=== PATIENT | female | born 1930 | race African-American/Black ===

== ENCOUNTER 2018-01-03 01:23 | Emergency (ER) | payer OTHER, MEDICARE ==
--- NOTE | 2018-01-03 01:47 | PDOC ---
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 States that she has intermittent pain of her right foot that radiates up her leg but acutely worsened tonight. Her famiyl at bedside are more concerned about her increased urinary frequency that has become malodorous. Denies fevers, chills, nausea, vomiting, diarrhea, constipation, or other symptoms. Denies recent travel, immobility, leg swelling, SOB, or chest pain. She uses a walker at home. 01/03/18 01:53 Past History - Past Medical History Allergies/Adverse Reactions: Allergies Allergy/AdvReac Type Severity Reaction Status Date / Time No Known Allergies Allergy Verified 01/03/18 02:05 Home Medications: Ambulatory Orders Amlodipine Besylate [Norvasc -] 5 mg PO DAILY 09/08/13 Metoprolol/Hydrochlorothiazide [Metoprolol-Hctz 50-25 mg Tab] 1 each PO DAILY Triamterene/Hydrochlorothiazid [Triamterene-Hctz 37.5-25 mg Cp] 1 tab PO DAILY 09/08/13 Cephalexin Monohydrate [Keflex -] 500 mg PO BID 7 Days #14 capsule 01/03/18 Anemia: No Asthma: No Cancer: No Cardiac Disorders: No CVA: No COPD: No CHF: No Dementia: No Diabetes: No GI Disorders: Yes (STOMACH PROBLEM) Disorders: No HTN: No Hypercholesterolemia: No Liver Disease: No Seizures: No Thyroid Disease: No - Surgical History Abdominal Surgery: Yes Appendectomy: No Cardiac Surgery: No Cholecystectomy: No Lung Surgery: No Neurologic Surgery: No Orthopedic Surgery: No - Suicide/Smoking/Psychosocial Hx Smoking History: Never smoked Hx Alcohol Use: No Drug/Substance Use Hx: No Substance Use Type: None Hx Substance Use Treatment: No Review of Systems - Review of Systems Constitutional: No: Chills, Diaphoresis, Fever, Loss of Appetite HEENTM: No: Eye Pain, Blurred Vision Respiratory: No: Cough, Orthopnea, Shortness of Breath, Wheezing Cardiac (ROS): No: Chest Pain, Edema, Irregular Heart Rate ABD/GI: No: Constipated, Diarrhea, Nausea, Vomiting : No: Burning, Dysuria, Discharge Musculoskeletal: Yes: Muscle Pain. No: Back Pain, Joint Pain, Muscle Weakness Integumentary: No: Bruising, Lesions, Lumps, Pallor Neurological: Yes: Paresthesia, Tingling. No: Numbness, Weakness Psychiatric: No: Anxiety, Depression *Physical Exam - Physical Exam General Appearance: Yes: Nourished, Appropriately Dressed. No: Apparent Distress HEENT: positive: EOMI, CARLI, Normal ENT Inspection, Normal Voice Neck: positive: Trachea midline, Normal Thyroid, Supple. negative: Tender, Rigid Respiratory/Chest: positive: Lungs Clear, Normal Breath Sounds. negative: Chest Tender, Respiratory Distress, Accessory Muscle Use Cardiovascular: positive: Regular Rhythm, Regular Rate Vascular Pulses: Carotid (R): 2+, Carotid (L): 2+, Dorsalis-Pedis (R): 2+, Doralis-Pedis (L): 2+ Gastrointestinal/Abdominal: positive: Normal Bowel Sounds, Flat, Soft. negative : Tender Musculoskeletal: positive: Normal Inspection Extremity: positive: Normal Capillary Refill, Normal Inspection, Normal Range of Motion. negative: Tender Integumentary: positive: Normal Color, Dry, Warm, Cold (both LEs cold to touch) Neurologic: positive: Fully Oriented, Alert, Normal Mood/Affect, Normal Response , Respond to painful stimul. negative: Motor Strength 5/5 (4/5 upper and lower extremities), Sensory Deficit ED Treatment Course - LABORATORY CBC & Chemistry Diagram: 01/03/18 03:16 01/03/18 03:16 Medical Decision Making - Medical Decision Making 87 year old female with PMH of GIST, HTN , and Atrial fibrillation urinary frequency and non specific right toe paresthesias that are acute on chronic. No swelling in lower extremities with low risk for DVT. Pain improved drastically with one dose of Tylenol 650 MG. L spine negative for any met to spine. CBC/ CMP WNL but UA demonstrating infection. Given Rocephin one dose here and sent home with Keflex 500 BID. 01/03/18 05:04 *DC/Admit/Observation/Transfer Diagnosis at time of Disposition: UTI (urinary tract infection) Qualifiers: Urinary tract infection type: site unspecified Hematuria presence: with hematuria Qualified Code(s): N39.0 - Urinary tract infection, site not specified ; R31.9 - Hematuria, unspecified - Discharge Dispostion Disposition: HOME Condition at time of disposition: Improved - Prescriptions Prescriptions: Cephalexin Monohydrate [Keflex -] 500 mg PO BID 7 Days #14 capsule - Referrals - Patient Instructions Printed Discharge Instructions: DI for Urinary Tract Infection (UTI) Additional Instructions: You have an infection in your urine. Please take your antibiotics twice a day for the next 7 days. Please follow up with your PCP within one week. Please return to the ED if you have any new or worsening symptoms. - Post Discharge Activity
[2018-01-03] MEDS ORDERED: ACETAMINOPHEN 325 MG TABLET (FP) PO ONE (01:58)
[2018-01-03] MEDS ORDERED: ACETAMINOPHEN 325 MG TABLET (FP) ONE (02:05)
[2018-01-03 02:07] VITALS: TEMP 99.3; BMI 33.0
--- NOTE | 2018-01-03 02:58 | PDOC ---
Attending Attestation - HPI HPI: 01/03/18 03:50 The patient is a 87 year old female with past medical history of GIST and HTN presents to the emergency department with urinary problems. The patient reports shes been experiencing urinary frequency for the past couple of day without relief. The patient reports a history of chronic intermittent right lower extremity tingling. The patient reports associated symptoms of right foot pain that radiates up to the leg. The patient denies taking any medication for the pain. Denies dysuria or hematuria. Denies diarrhea or constipation. Denies nausea or vomiting. Denies numbness or loss of sensations. Allergies: NKDA Social history: None reported Surgical history: Abdominal surgical. PCP: None reported - Medical Decision Making 01/03/18 03:50 Documentation prepared by Delisa Melendez, acting as medical technologist generalist for Karime Cruz MD. <Delisa Melendez - Last Filed: 01/03/18 03:50> - Resident Resident Name: Catia Mathis - ED Attending Attestation I have performed the following: I have examined & evaluated the patient, The case was reviewed & discussed with the resident, I agree w/resident's findings & plan - Physicial Exam PE: 01/03/18 03:34 Agree with resident exam - Medical Decision Making 01/03/18 03:35 Pt has labs pending 01/03/18 04:59 Labs are normal. Pt has a UTI. SHe will be discharged home with keflex. Low back pain and lef paresthesias was evaluated with a L spine CT scan. Scan is normal: Patient Name: GARLAND JOSHUA THIS IS A PRELIMINARY REPORT FROM [facility] MACHINE OPERATOR DATE OF SERVICE: 2018-01-03 04:33:32 IMAGES: 435 EXAM: LUMBAR SPINE CT W/O CONTRAST HISTORY: Rule out metastases COMPARISON: None. FINDINGS: No fracture. There is a mild degenerative anterolisthesis of L5 on S1. There are no suspicious bone lesions. Multilevel severe degenerative changes are noted with diffuse moderate neuroforaminal and mild central canal narrowing. IMPRESSION: Degenerative changes without fracture or suspicious bone lesions <Karime Cruz - Last Filed: 01/03/18 05:00>
[2018-01-03 03:36] LABS: BASO % 0.4 % (0-2.0); EOS % 0.4 % (0-4.5); HEMATOCRIT 43.3 % (32.4-45.2); LYMPH % 12.9 % (8-40); MCH 28.1 pg (25.7-33.7); MCHC 32.3 g/dl (32.0-36.0); MEAN CELL VOLUME 86.8 fl (80-96); MONO % 6.3 % (3.8-10.2); PLATELET COUNT 198 K/MM3 (134-434); RBC 4.99 M/mm3 (3.60-5.2); RDW 15.1 % (11.6-15.6); WHITE BLOOD COUNT 8.2 K/mm3 (4.0-10.0)
[2018-01-03 03:56] LABS: URINE APPEARANCE CLOUDY; URINE BILIRUBIN NEGATIVE (<2.0 mg/dL); URINE COLOR AMBER; URINE GLUCOSE (UA) NEGATIVE (NEGATIVE); URINE KETONE NEGATIVE (NEGATIVE); URINE NITRITE NEGATIVE (NEGATIVE); URINE UROBILINOGEN 4.0 E.U/dl mg/dL (0.2-1.0)
[2018-01-03 03:56] LABS: ALBUMIN 2.9 g/dl (3.4-5.0); ALK PHOS 99 U/L (45-117); ANION GAP 10 (8-16); BILIRUBIN,TOTAL 0.8 mg/dL (0.2-1.0); BLOOD UREA NITROGEN 16 mg/dL (7-18); CALCIUM 9.2 mg/dL (8.5-10.1); CHLORIDE 108 mmol/L (98-107); CO2 23 mmol/L (21-32); CREATININE 1.1 mg/dL (0.55-1.02); GLUCOSE,RANDOM 123 mg/dL (74-106); POTASSIUM 4.2 mmol/L (3.5-5.1); SGOT/AST 47 U/L (15-37); SGPT/ALT 46 U/L (12-78); SODIUM 141 mmol/L (136-145); TOT PROT 6.6 g/dl (6.4-8.2)
[2018-01-03 04:05] LABS: URINE LEUK ESTERASE 3+ (NEGATIVE); URINE PROTEIN 3+ (NEGATIVE)
[2018-01-03 04:07] LABS: EPI CELLS MANY /HPF (FEW); URINE BACTERIA MANY /hpf (NONE SEEN); URINE MUCUS RARE
[2018-01-03] MEDS ORDERED: SODIUM CHLORIDE 0.9% 500 ML INFUS.BAG IV ONE (05:00)
[2018-01-03] MEDS ORDERED: CEFTRIAXONE 1 GM in DEXTROSE 5%-WATER - 50 ML IVPB ONE (05:00)
[2018-01-03] MEDS ORDERED: CEFTRIAXONE 1 GM/50 ML BAG ONE (05:17)
[2018-01-03 05:50] VITALS: BP 118/78; PULSE 79
--- NOTE | 2018-01-03 11:21 | EKG ---
Test Reason : Blood Pressure : / mmHG Vent. Rate : 061 BPM Atrial Rate : 357 BPM P-R Int : 000 ms QRS Dur : 088 ms QT Int : 456 ms P-R-T Axes : 000 -34 167 degrees QTc Int : 459 ms ATRIAL FIBRILLATION LEFT AXIS DEVIATION ANTEROSEPTAL INFARCT (CITED ON OR BEFORE 15-OCT-2010) ABNORMAL ECG WHEN COMPARED WITH ECG OF 16-OCT-2010 12:58, ATRIAL FIBRILLATION HAS REPLACED SINUS RHYTHM Confirmed by JEREMY GRIFFIN MD ([id number]) on 01/03/2018 11:20:44 AM Referred By: Confirmed By:JEREMY GRIFFIN MD
== END 2018-01-03 05:30 | disposition home or self-care (01) ==
LOC: JER 01:23
DX: N39.0 Urinary tract infection, site not specified (principal); R31.9 Hematuria, unspecified; I10 Essential (primary) hypertension; I48.91 Unspecified atrial fibrillation; C49.A0 Gastrointestinal stromal tumor, unspecified site
CPT/HCPCS: 36415; 72131-TC; 80053; 81003; 81015; 85025; 87086; 87186; 93005; 93010; 96365; 99281-25

== ENCOUNTER 2018-01-08 11:40 | Inpatient (IN) | payer MEDICARE, OTHER ==
--- NOTE | 2018-01-08 12:00 | PDOC ---
History of Present Illness - History of Present Illness Initial Comments: 01/08/18 13:12 The patient is a 87 year old female with past medical history of GIST, HTN, HLD , arrhythmia, and gout who was sent by her PCP to be admitted for right cool leg. Patient does not endorse any current pain in the affected leg. She was seen in the ER 5 days ago for a UTI and hematuria. PCP: Blaine Thomas Vascular surgery: Wilfredo Riggins Family Hx: Mother ( at 80 with HTN and aneurysm), father ( of unknown reasons), sisters (one and one alive, both with ovarian cancer. Brothers ( one alive, one , both with melanoma.) Surgical Hx: LUCY-BSO, GIST <Vandana Bolton - Last Filed: 01/08/18 16:48> <Olga Macias - Last Filed: 01/08/18 16:57> - General Chief Complaint: Pain Stated Complaint: PCP SENT Time Seen by Provider: 01/08/18 11:58 Past History <Vandana Bolton - Last Filed: 01/08/18 16:48> - Past Medical History Anemia: No Asthma: No Cancer: No Cardiac Disorders: No CVA: No COPD: No CHF: No Dementia: No Diabetes: No GI Disorders: Yes (STOMACH PROBLEM) Disorders: No HTN: Yes Hypercholesterolemia: No Liver Disease: No Seizures: No Thyroid Disease: No - Surgical History Abdominal Surgery: Yes Appendectomy: No Cardiac Surgery: No Cholecystectomy: No Lung Surgery: No Neurologic Surgery: No Orthopedic Surgery: No - Suicide/Smoking/Psychosocial Hx Smoking History: Never smoked Have you smoked in the past 12 months: No Hx Alcohol Use: No Drug/Substance Use Hx: No Substance Use Type: None Hx Substance Use Treatment: No <Olga Macias - Last Filed: 01/08/18 16:57> - Past Medical History Allergies/Adverse Reactions: Allergies Allergy/AdvReac Type Severity Reaction Status Date / Time No Known Allergies Allergy Verified 01/08/18 11:46 Home Medications: Ambulatory Orders Amlodipine Besylate 5 mg PO DAILY 01/03/18 Metoprolol/Hydrochlorothiazide [Metoprolol-Hctz 100-25 mg Tab] 1 each PO DAILY 01/03/18 Review of Systems - Review of Systems Comments:: GENERAL/CONSTITUTIONAL: No fever or chills. No weakness. HEAD, EYES, EARS, NOSE AND THROAT: No change in vision. No ear pain or discharge. No sore throat. GASTROINTESTINAL: No nausea, vomiting, diarrhea or constipation. GENITOURINARY: No dysuria, frequency, or change in urination. CARDIOVASCULAR: No chest pain or shortness of breath. RESPIRATORY: No cough, wheezing, or hemoptysis. MUSCULOSKELETAL: No joint or muscle swelling or pain. No neck or back pain. SKIN: +cool right foot. No rash NEUROLOGIC: No headache, vertigo, loss of consciousness, or change in strength/ sensation. ENDOCRINE: No increased thirst. No abnormal weight change. HEMATOLOGIC/LYMPHATIC: +anemic, no easy bleeding, or history of blood clots. ALLERGIC/IMMUNOLOGIC: No hives or skin allergy. <Vandana Bolton - Last Filed: 01/08/18 16:48> *Physical Exam - Vital Signs Last Vital Signs Temp Pulse Resp BP Pulse Ox 98 F 71 18 155/105 99 01/08/18 11:42 01/08/18 11:42 01/08/18 11:42 01/08/18 11:42 01/08/18 11:42 - Physical Exam Comments: Constitutional: Awake, alert, oriented. No acute distress. Head: Normocephalic. Atraumatic Eyes: PERRL. EOMI. Conjunctivae are not pale. ENT: Mucous membranes are moist and intact. Posterior pharynx without exudates or erythema. Uvula midline. Neck: Supple. Full ROM. No lymphadenopathy. Cardiovascular: Regular rate. Regular rhythm. S1, S2 regular. Distal pulses are 2+ and symmetric. Pulmonary/Chest: No evidence of respiratory distress. Clear to auscultation bilaterally No wheezing, rales or rhonchi. Abdominal: Soft and non-distended. There is no tenderness. No rebound, guarding or rigidity. No organomegaly. No palpable masses. Good bowel sounds. Back: No CVA tenderness. Musculoskeletal: Cool right foot (mid-tibia down). Delayed cap refill. Weak posterior pulses. Popliteal intact. No edema. No cyanosis. No clubbing. Full range of motion in all extremities. No calf tenderness. Skin: Cool right foot. No petechiae. No purpura. Neurological: Alert and oriented to person, place, and time. Cranial nerves II -XII are grossly intact. Normal speech. Strength is grossly symmetric. No sensory deficits. Psychiatric: Good eye contact. Normal interaction, affect and behavior. <Vandana Bolton - Last Filed: 01/08/18 16:48> - Vital Signs Last Vital Signs Temp Pulse Resp BP Pulse Ox 98 F 71 18 155/105 99 01/08/18 11:42 01/08/18 11:42 01/08/18 11:42 01/08/18 11:42 01/08/18 11:42 <Olga Macias - Last Filed: 01/08/18 16:57> Heart Score/ECG Review - ECG Intrepretation Comment:: 01/08/18 16:53 afib at 63, L axis, poor r wave progression, st depression lateral leads, abnl ekg <Olga Macias - Last Filed: 01/08/18 16:57> ED Treatment Course - LABORATORY CBC & Chemistry Diagram: 01/08/18 12:50 01/08/18 12:50 - ADDITIONAL ORDERS Additional order review: 01/08/18 12:50 RBC 4.97 MCV 86.3 MCHC 32.4 RDW 15.1 MPV 8.9 Neutrophils % 78.3 Lymphocytes % 14.5 Monocytes % 6.7 Eosinophils % 0.1 Basophils % 0.4 <Vandana Bolton - Last Filed: 01/08/18 16:48> - LABORATORY CBC & Chemistry Diagram: 01/08/18 12:50 01/08/18 12:50 <Olga Macias - Last Filed: 01/08/18 16:57> Medical Decision Making - Critical Care Time Total Critical Care Time (minutes): 30 Critical Care Statement: The care of this patient involved high complexity decision making to prevent further life threatening deterioration of the patient 's condition and/or to evaluate & treat vital organ system(s) failure or risk of failure. - Medical Decision Making 01/08/18 12:54 a/p: 87yo female with cool R leg x 2 days -sensation intact -motor strength intact -Dr. Valladares will admit -call placed to Dr. Riggins - will see patient in consult -will send labs -arterial and venous doppler -will need admission 01/08/18 13:41 case discussed with radiology - no flow proximally in R leg, but has flow in popliteal, minimal flow distal poss collateral flow but lots of PVD repeat call placed to Dr. Riggins to update him 01/08/18 14:43 rediscussed the case with Dr. Riggins given decreased flow will start heparin will obtain cta abd/pelvis with LE runoff will admit 01/08/18 16:53 ct shows clot in AMBULANCE ATTENDANT and SFA on R heparin running another call placed to Dr. Riggins <Olga Macias - Last Filed: 01/08/18 16:57> *DC/Admit/Observation/Transfer <Vandana Bolton - Last Filed: 01/08/18 16:48> - Discharge Dispostion Decision to Admit order: Yes - Attestations Physician Attestion: 01/08/18 13:42 I, Dr. Olga Macias, DO, attest that this document has been prepared under my direction and personally reviewed by me in its entirety. I further attest, that it accurately reflects all work, treatment, procedures and medical decision -making performed by me. <Olga Macias - Last Filed: 01/08/18 16:57> Diagnosis at time of Disposition: Peripheral vascular disease - Discharge Dispostion Condition at time of disposition: Guarded
[2018-01-08 13:09] LABS: BASO % 0.4 % (0-2.0); EOS % 0.1 % (0-4.5); HEMATOCRIT 42.8 % (32.4-45.2); HEMOGLOBIN 13.9 GM/dL (10.7-15.3); LYMPH % 14.5 % (8-40); MCH 27.9 pg (25.7-33.7); MCHC 32.4 g/dl (32.0-36.0); MEAN CELL VOLUME 86.3 fl (80-96); MEAN PLT VOLUME 8.9 fl (7.5-11.1); MONO % 6.7 % (3.8-10.2); NEUT % 78.3 % (42.8-82.8); PLATELET COUNT 211 K/MM3 (134-434); RBC 4.97 M/mm3 (3.60-5.2); RDW 15.1 % (11.6-15.6)
[2018-01-08 13:22] LABS: CHLORIDE 107 mmol/L (98-107); SODIUM 142 mmol/L (136-145)
[2018-01-08 13:26] LABS: ALBUMIN 3.1 g/dl (3.4-5.0); ANION GAP 6 (8-16); BLOOD UREA NITROGEN 10 mg/dL (7-18); CO2 29 mmol/L (21-32); GLUCOSE,RANDOM 132 mg/dL (74-106); SGPT/ALT 47 U/L (12-78)
[2018-01-08 13:28] LABS: ALK PHOS 104 U/L (45-117); BILIRUBIN,TOTAL 0.6 mg/dL (0.2-1.0)
[2018-01-08 13:33] LABS: MAGNESIUM 2.1 mg/dL (1.8-2.4); POTASSIUM 3.9 mmol/L (3.5-5.1); SGOT/AST 35 U/L (15-37)
[2018-01-08] MEDS ORDERED: SODIUM CHLORIDE 0.9% 1000 ML INFUS.BAG IV ONE (13:41)
[2018-01-08 14:22] LABS: URINE APPEARANCE CLEAR; URINE BILIRUBIN NEGATIVE (<2.0 mg/dL); URINE COLOR YELLOW; URINE GLUCOSE (UA) 1+ (NEGATIVE); URINE KETONE NEGATIVE (NEGATIVE); URINE LEUK ESTERASE NEGATIVE (NEGATIVE); URINE NITRITE NEGATIVE (NEGATIVE)
[2018-01-08 14:23] LABS: URINE PROTEIN 3+ (NEGATIVE)
[2018-01-08 14:24] LABS: EPI CELLS RARE /HPF (FEW); URINE MUCUS RARE
[2018-01-08] MEDS ORDERED: HEPARIN NA (PORCINE) 5,000 UNITS/ML 1ML VIAL IVPUSH PRN ×2 (14:28)
[2018-01-08 14:31] LABS: INR 1.17 (0.82-1.09); PROTHROMBIN TIME (PATIENT) 13.2 SEC (9.7-13.0)
[2018-01-08 14:34] LABS: ACTIVATED PTT 25.3 SECONDS (26.9-34.4)
[2018-01-08] MEDS ORDERED: HEPARIN INFUSION - 25,000 UNITS/500 ML INFUS.BAG IVPB ONE (15:28)
[2018-01-08] MEDS ORDERED: HEPARIN NA (PORCINE) 5,000 UNITS/ML 1ML VIAL ONE (15:28)
[2018-01-08] MEDS: HEPARIN - 25,000 UNIT in SODIUM CHLORIDE 495 ML IV SCH (16:31)
--- NOTE | 2018-01-08 19:53 | PN ---
Progress Note (short form) - Note Progress Note: Vascular Surgery 87 year old female with 5 day history as per daughter of pain in her right leg. Today she could not walk on the leg and went to PMD. PMD sent Pt to ER. CTA in Er done shows right iliac artery, right associate technician, right sfa occlusion. Probably embolus. Pt does have history of Afib. PE Head - NC/At Lung - CTA Heart - RRR abd - soft,nt,nt ext - right lower ext cool, no palpable pulses. Left lower ext pink -- palpable PT pulse. Motor and sensory intact in RLE A/P Right lower ext ischemia. Pt on heparin drip Will stop at 6am. NPO past midnight. Spoke to family bedside. Wilfredo Riggins DO
[2018-01-09] MEDS: HEPARIN - 25,000 UNIT in SODIUM CHLORIDE 495 ML IV SCH (00:45)
[2018-01-09 01:00] VITALS: BMI 25.2
[2018-01-09] MEDS ORDERED: PROPOFOL 20 ML ONE (09:42)
[2018-01-09] MEDS ORDERED: MIDAZOLAM HCL 2 MG/2 ML SINGLE DOSE VIAL ONE (09:43)
[2018-01-09] MEDS ORDERED: SUCCINYLCHOLINE CHLORIDE 200 MG/10 ML VIAL ONE (09:43)
[2018-01-09] MEDS ORDERED: LIDOCAINE HCL/PF 2% SDV 5ML VIAL ONE (09:45)
[2018-01-09] MEDS ORDERED: LIDOCAINE HCL 1%, 10 MG/ML (20ML VIAL) ONE (09:47)
[2018-01-09] MEDS ORDERED: HEPARIN NA (PORCINE) 5,000 UNITS/ML 1ML VIAL ONE ×2 (09:47→11:08)
[2018-01-09] MEDS ORDERED: TIMOLOL 0.5% OPHTHALMIC SOL 5 ML BOTTLE OD SCH (10:00)
[2018-01-09] MEDS ORDERED: BRIMONIDINE TARTRATE 0.2% OPHTHALMIC 5 ML BOTTLE OD SCH (10:00)
[2018-01-09] MEDS ORDERED: amLODIPine BESYLATE 5 MG TABLET (FP) PO SCH (10:00)
[2018-01-09] MEDS ORDERED: IMATINIB MESYLATE 100 MG TABLET PO SCH (10:00)
[2018-01-09] MEDS ORDERED: DORZOLAMIDE 2% HCL OPHTHALMIC SOLUTION 10 ML BOTTLE OD SCH (10:00)
[2018-01-09] MEDS ORDERED: ceFAZolin SODIUM 1 GM VIAL IVPB ONE (10:50)
[2018-01-09] MEDS ORDERED: ceFAZolin SODIUM 1 GM VIAL ONE (10:55)
[2018-01-09] MEDS ORDERED: DEXAMETHASONE SOD PHOSPHATE 4 MG/1 ML VIAL ONE (11:09)
--- NOTE | 2018-01-09 11:50 | EKG ---
Test Reason : Blood Pressure : / mmHG Vent. Rate : 063 BPM Atrial Rate : 054 BPM P-R Int : 000 ms QRS Dur : 094 ms QT Int : 484 ms P-R-T Axes : 000 -43 127 degrees QTc Int : 495 ms POOR DATA QUALITY, INTERPRETATION MAY BE ADVERSELY AFFECTED ATRIAL FIBRILLATION LEFT AXIS DEVIATION ANTEROSEPTAL INFARCT (CITED ON OR BEFORE 15-OCT-2010) ABNORMAL ECG WHEN COMPARED WITH ECG OF 03-JAN-2018 01:34, NO SIGNIFICANT CHANGE WAS FOUND Confirmed by MD Carolyn, Harsha ([id number]) on 01/09/2018 11:50:25 AM Referred By: Confirmed By:Harsha Leon MD
--- NOTE | 2018-01-09 12:26 | OP ---
Operative Note - Note: Operative Date: 01/09/18 Pre-Operative Diagnosis: RLE ischemia Operation: Open thrombectomy right iliac, TECHNICAL ACCOUNT EXECUTIVE, DFA, SFA, Popliteal artery, with right lower ext angiogram. Findings: embolus in ilac , TECHNICAL ACCOUNT EXECUTIVE, DFA, SFA, Popliteal artery Post-Operative Diagnosis: Same as Pre-op Surgeon: Wilfredo Riggins Anesthesia: General Estimated Blood Loss (mls): 100 Fluid Volume Replaced (mls): 1,100 Operative Report Dictated: Yes
[2018-01-09] MEDS ORDERED: LACTATED RINGERS SOLUTION 1,000 ML IV SCH ×2 (12:30→12:44)
[2018-01-09] MEDS: HEPARIN INFUSION - 25,000 UNITS/500 ML INFUS.BAG IVPB SCH (12:30)
[2018-01-09] MEDS ORDERED: HEPARIN NA (PORCINE) 5,000 UNITS/ML 1ML VIAL IVPUSH PRN ×3 (12:30→12:31)
--- NOTE | 2018-01-09 13:43 | OP ---
DATE OF OPERATION: 01/09/2018 PREOPERATIVE DIAGNOSIS: Right lower extremity ischemia. POSTOPERATIVE DIAGNOSIS: Right lower extremity ischemia. PROCEDURE: Open thrombectomy of right iliac artery, right common femoral artery, right deep profunda artery, right superficial femoral artery, and right popliteal artery with right lower extremity angiogram. SURGEON: Wilfredo Rodríguez DO ANESTHESIA: General. BLOOD LOSS: 100 mL. The patient is an 87-year-old female that comes in with right lower extremity ischemia that started about 5 days ago. As per the daughter, the right leg has been getting cooler and cooler and more painful and, yesterday, she could not walk on the leg at all and she went to her PMD, who sent her to the emergency room. Upon getting to the emergency room, they did an arterial duplex that showed no flow in the right lower extremity and they did a CTA, which then confirmed that she has a right iliac artery thrombus, common femoral artery was closed, and the SFA closed. At this point, the patient was seen, IV heparin was started, consent was obtained. The patient was then brought to the operating room and consent was obtained from the daughter, who understands all risks, benefits, and alternatives. The patient was then brought to the operating room and laid down on the operating table in a supine manner. General anesthesia was administered to the patient. The area of the right and left groins were then prepped and draped in a sterile surgical manner. We then, under ultrasound guidance, visualized the right common femoral artery and the bifurcation and that was marked on the skin and then an incision was drawn out vertically. We then went ahead and a made a 7-cm incision using a 15 blade. Bovie electrocautery used to control hemostasis and then we were able to get down through all the subcutaneous tissues using Bovie electrocautery. We then got down to the femoral sheath and the femoral sheath was then dissected. We then individually dissected out the common femoral artery, the profunda, and SFA and Vesseloop were placed around them. Then, 5000 units of IV heparin were administered to the patient. After 3 minutes, we got proximal, distal control; proximally on the common femoral artery and distally on the SFA and the profunda using our Vesseloop. Using a 15 blade, we made a transverse incision on the common femoral artery. We then used a No. 4 Annabel and, upon putting the Annabel in, you could see that there was already clot in the artery. We took this Annabel down to the popliteal artery and brought it up and 3 passes were done and thrombus and embolus were removed and sent to pathology. We then went ahead and placed a No. 4 Annabel up into the iliac artery and we were able to get the thrombus out of the iliac artery and the thrombus was removed and the inflow was restored. At this point, there was good inflow, there was good backbleeding coming from the SFA. We then placed our balloon into the deep profunda artery and performed an embolectomy there and the clot was removed from the origin of the deep profunda artery. At this point, we went ahead and paced a No. 4-Turkmen sheath in and we shot an angiogram of the right lower extremity, showing that the common femoral artery, the profunda, the SFA are all patent. Popliteal artery is patent as well and there is trickle-down flow due to tibial disease going into the distal calf. At this point, we went ahead and decided to close the artery. Using 6-0 Prolene double-arm, we went ahead and closed the artery in a running fashion. Once the artery was closed, we opened the profunda and the SFA and opened the inflow. We then went ahead and placed Surgicel. We then took a butterfly needle and placed it in the proximal SFA and shot an angiogram of the right lower extremity with the inflow open and there was good brisk flow down into the popliteal artery, along with visualizing the TP trunk and the tibial arteries. At this point, the flow into the foot was via collaterals and, at this point, no more intervention is needed. We will anticoagulate the patient and the foot should become warmer. There is no surgical intervention, such as angioplasty, needed. There is no bypassable disease at this point. At this point, we went ahead and, using a 6-0 Prolene, we were able to place a stitch where the butterfly needle was. We then irrigated the wound copiously and 3-0 Vicryl was used in the subcutaneous tissue, which was approximated in an interrupted manner, and the skin was closed with skin ravi. The areas were then dried and 4x4s, Tegaderm were placed. The patient tolerated the procedure with no complications. Patient transferred to the PACU in stable condition and will then be transferred to the intensive care unit. The patient was given a 3000 unit IV heparin bolus, along with 1000 units/hr. The patient will be transferred to the unit. The patient has a good Dopplerable popliteal pulse. WILFREDO RODRÍGUEZ DO [id number]
--- NOTE | 2018-01-09 15:24 | HP ---
DATE OF ADMISSION: 01/08/2018 The patient is an 87-year-old female, known to me for many years, came to my office yesterday with complaints of cold right leg. In the office, it was thought that patient has acute thrombosis, so patient was sent to the emergency room for further evaluation. PAST MEDICAL HISTORY: She had a stomach tumor removed about 7 years ago. Since then, she is on Gleevec, being followed by Dr. Diamond. This morning, the right iliac artery embolism was removed by Dr. Riggins under anesthesia. Patient tolerated the procedure well. Patient's circulation has improved. She is resting in the ICU, bed number 2. She is also known to have hypertension. She is on amlodipine. PHYSICAL EXAMINATION: General: Patient is awake, alert and talking. Vital Signs: Blood pressure 140/75, respiration 20, temperature 98. HEENT: Unremarkable. Neck: Supple, no JVD. Lungs: Clear. Heart: S1, S2 normal. No S3, S4. Abdomen: Soft. Legs: Peripheral pulses felt on both femurs. Popliteal is not felt on the right side. The leg is warmer than yesterday. There are Doppler signals on the popliteal artery and dorsalis pedis or posterior tibial is not having any Doppler signals at present. LABORATORY REPORTS: WBC 9, hemoglobin 13.9, platelets 211. Chemistry: Sodium 142, potassium 3.9, chloride 107, BUN 10, creatinine 1, blood sugar 132, lactic acid was 2.7, albumin 3.1. Chest x-ray: No lung pathology, large heart. DIAGNOSIS: Acute thromboembolism on the right lower extremity, hypertension, and gastric tumor resection. Continue heparin and other medications. Will follow with Dr. Riggins. Henna [id number]
--- NOTE | 2018-01-09 20:20 | CONSULT ---
Consult Consult Specialty:: Pulm Critical Care Referred by:: Dr. Riggins Reason for Consultation:: s/p thrombectomy - History of Present Illness Chief Complaint: Rt GROCERY CLERK CHECKING and SFA clot History of Present Illness: This is an 87 yo female w/ pmhx of GIST, HTN, HLD, arrhythmia, and gout who presented to her PCP on 01/08 with a 5 day of pain in her right leg. Daughter described that her mother's right leg was getting cooler and more painful to the point where she was unable to walk on the leg at all. Pt's PCP sent her to [facility] ED and she was seen by vascular service. CTA in ED showed embolus in ilac , GROCERY CLERK CHECKING, DFA, SFA, Popliteal artery. On exam, her right lower ext ischemia, cool, no palpable pulses, Left lower ext pink - palpable PT pulse, and motor and sensory intact in RLE. She was placed on a heparin gtt with plan to do thrombectomy the following day w/ vascular surgery Dr. Wilfredo Riggins. Of note, she was seen in the ER 5 days prior to presenting to [facility] ED for a UTI and hematuria. Upon arrival to ICU on 01/09 pt s/p open thrombectomy right iliac, GROCERY CLERK CHECKING, DFA, SFA , Popliteal artery, with right lower ext angiogram. VSS. LAbs remarkable for K 3.1, repleted with PO K. On exam, rt leg is warm, pink, pulses not palpable, but dopplerable PT and popiteal pulses. DP not dopplerable. Groin site dressing required change, slightly ecchymotic and slightly more swollen than left. Pt denies pain or discomfort. No sensory deficits. Family at bedside attest to pt' s rt leg looking improved. 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: Alzheimer's, CVA, Dementia, Migraine, Multiple Sclerosis, Peripheral Neuropathy, Parkinson's, Seizure, Syncope, TIA, Vertigo, Other Cardio/Vascular: Yes: HTN, Hyperlipdemia, Other (arrthymmia, PVD) Pulmonary: No: Asthma, Bronchitis, Cancer, COPD, O2 Dependent, Pneumonia, Previously Intubated, Pulmonary Embolus, Pulmonary Fibrosis, Sleep Apnea, Other Gastrointestinal: Yes: Other (GIST) Hepatobiliary: No: Cirrhosis, Cholelithiasis, Cholecystitis, Choledocholithiasis , Hepatitis A, Hepatitis B, Hepatitis C, Other Renal/: Yes: UTI Reproductive: No: Ectopic , Endometriosis, Fibroids, PID, Polycystic Ovary Syndrome, Postmenopausal, Other ...: No Heme/Onc: No: Anemia, B12 Deficiency, Bleeding Disorder, Cancer, Current Chemotherapy, Current Radiation Therapy, Hemochromatosis, Hypercoaguable State, Myeloproliferative Synd, Sickle Cell Disease, Sickle Cell Trait, Thrombocytopenia, Other Infectious Disease: No: AIDS, C-Diff, Herpes Zoster, HIV, MRSA, STD's, Tuberculosis, VREF, Other Psych: No: Addictions, Anxiety, Bipolar, Depression, Panic, Psychosis, Schizophrenia, Other Musculoskeletal: No: Bursitis, Chronic low back pain, Hemiparesis, Hemiplegia, Osteoarthritis, Paraplegia, Other Rheumatology: Yes: Gout ENT: No: Allergic Rhinitis, Sinusitis, Other Endocrine: No: Brooklyn's Disease, Diego's Disease, Diabetes Insipidus, Diabetes Mellitus, Hyperparathyroidism, Hyperthyroidism, Hypothyroidism, Osteopenia, SIADH, Other Dermatology: No: Basal Cell, Cellulitis, Eczema, Melanoma, Psoriasis, Squamous Cell, Other - Past Surgical History Past Surgical History: No: None, AAA Repair, AICD, Amputation, Appendectomy, Arthrosocopy, AV Fistula/Graft, Bariatric Surgery, Breast Biopsy, Bypass, CABG, Carotid Endarterectomy, Cataract Removal, Cholecystectomy, Colectomy, Colonoscopy, Colostomy, Craniotomy, , Cystectomy, Hernia Repair, Hysterectomy, Ileal Conduit, Ileosotomy, Joint Replacement, Kidney Transplant, Laminectomy, Liver Transplant, Mastectomy, Nephrectomy, Oopherectomy, Orchiectomy, Permanent Pacemaker, Prostatectomy, Splenectomy, Stent, Thoracotomy , TURP, Tonsillectomy, Tubal Ligation, Upper Endoscopy, Valve Replacement, Vasectomy, Vein Stripping/Ligation - Alcohol/Substance Use Hx Alcohol Use: No - Smoking History Smoking history: Never smoked Have you smoked in the past 12 months: No - Social History Usual Living Arrangement: With Child ADL: Independent History of Recent Travel: No Home Medications - Allergies Allergies/Adverse Reactions: Allergies Allergy/AdvReac Type Severity Reaction Status Date / Time No Known Allergies Allergy Verified 01/08/18 11:46 - Home Medications Home Medications: Ambulatory Orders Amlodipine Besylate 5 mg PO DAILY 01/03/18 Brimonidine Tartrate/Timolol [Combigan Eye Drops] 1 drop OD BID 01/08/18 Cephalexin [Keflex] 500 mg PO BID 01/08/18 Dorzolamide HCl [Trusopt 2%] 1 drop OD BID 01/08/18 Imatinib Mesylate [Gleevec] 500 mg PO DAILY 01/08/18 Latanoprost 0.005% Eye Drops [Xalatan 0.005% Eye Drops -] 1 drop OU HS 01/08/18 Metoprolol Succinate [Toprol Xl] 50 mg PO DAILY 01/08/18 Family Disease History - Family Disease History Family History: Unremarkable Review of Systems - Review of Systems Constitutional: reports: No Symptoms Eyes: reports: No Symptoms HENT: reports: No Symptoms Neck: reports: No Symptoms Cardiovascular: reports: No Symptoms Respiratory: reports: No Symptoms Gastrointestinal: reports: No Symptoms Genitourinary: reports: No Symptoms Breasts: reports: No Symptoms Reported Musculoskeletal: reports: Extremity Pain Integumentary: reports: Change in Color (rt leg was pale which prompted to see dr) Neurological: reports: No Symptoms Endocrine: reports: No Symptoms Hematology/Lymphatic: reports: No Symptoms Psychiatric: reports: No Symptoms Pain Intensity: 6 Physical Exam Vital Signs: Vital Signs Temperature 97.9 F 01/09/18 16:24 Pulse Rate 82 01/09/18 18:00 Respiratory Rate 18 01/09/18 18:00 Blood Pressure 153/87 01/09/18 18:00 O2 Sat by Pulse Oximetry (%) 99 01/09/18 13:50 Constitutional: Yes: Well Nourished, No Distress, Calm Eyes: Yes: WNL, Conjunctiva Clear, EOM Intact HENT: Yes: WNL, Atraumatic, Normocephalic Neck: Yes: WNL, Supple, Trachea Midline Cardiovascular: Yes: WNL, Regular Rate and Rhythm Respiratory: Yes: WNL, Regular, CTA Bilaterally Gastrointestinal: Yes: WNL, Normal Bowel Sounds, Soft ...Rectal Exam: Yes: WNL Renal/: Yes: WNL Breast(s): Yes: WNL Musculoskeletal: Yes: WNL Extremities: Yes: Other (Rt leg is now warm, color is pink,) Edema: No Peripheral Pulses WNL: No (rt DP not dopplerable, posterior tib faint dopplerable, popiteal dopplerabl) Integumentary: Yes: WNL Wound/Incision: Yes: Clean/Dry, Dressing Dry and Intact (rt procedural groin site slightly ecchymotic and swollen compared to left.) Neurological: Yes: WNL, Alert, Oriented ...Motor Strength: WNL Psychiatric: Yes: WNL, Alert, Oriented Labs: CBC, BMP 01/08/18 12:50 01/08/18 12:50 Imaging - Results Chest X-ray: Report Reviewed, Image Reviewed (cardiomegaly) Cat Scan: Report Reviewed (1. occluded distal rt external iliac artery, occluded Rt GROCERY CLERK CHECKING and SFA patent, rt popiteal artery w/ moderate luminal narrowing. 2. occluded lt renal artery 3. high grade stenosis in proximal left popiteal 4. 2.8 x3.3 cm rim-enhancing collection in pelvis 5. bile duct unchanged since priori study) Ultrasound: Report Reviewed (01/08: absenet flow in rt GROCERY CLERK CHECKING and SFA suugestive of occlusion; annormal flow in rt popiteal art) EKG: Image Reviewed (very poor tracing with heavy artifact.) Problem List - Problems (1) Embolus and thrombosis of iliac artery Code(s): I74.5 - EMBOLISM AND THROMBOSIS OF ILIAC ARTERY (2) Thrombosis of common femoral artery Code(s): I74.3 - EMBOLISM AND THROMBOSIS OF ARTERIES OF THE LOWER EXTREMITIES (3) Peripheral vascular disease Code(s): I73.9 - PERIPHERAL VASCULAR DISEASE, UNSPECIFIED (4) Hypokalemia Code(s): E87.6 - HYPOKALEMIA Assessment/Plan This is an 87 yo female w/ pmhx of GIST, HTN, HLD, arrhythmia, and gout who presented to [facility] with Rt LE ischemia found to have with rt GROCERY CLERK CHECKING and SFA occlusion, now s/p open thrombectomy right iliac, GROCERY CLERK CHECKING, DFA, SFA, popliteal artery by Dr. Riggins in ICU for further monitoring and management. # s/p open thrombectomy right iliac, GROCERY CLERK CHECKING, DFA, SFA, popliteal artery w/ h/o PVD # hypokalemia -frequent neurovascular checks to LEs -doppler pulse checks -rt groin site checks -cont heparin gtt -vascular following -trend cbc, coags, bmp -replete lytes PRN -reg diet ASA Garnica- Pulm Critical care CC time 30mins
[2018-01-09 21:13] LABS: HEMATOCRIT 44.4 % (32.4-45.2); HEMOGLOBIN 14.2 GM/dL (10.7-15.3); MCH 27.7 pg (25.7-33.7); MCHC 32.1 g/dl (32.0-36.0); MEAN CELL VOLUME 86.4 fl (80-96); MEAN PLT VOLUME 9.4 fl (7.5-11.1); PLATELET COUNT 227 K/MM3 (134-434); RBC 5.14 M/mm3 (3.60-5.2); RDW 14.9 % (11.6-15.6); WHITE BLOOD COUNT 10.7 K/mm3 (4.0-10.0)
[2018-01-09 21:46] LABS: ALBUMIN 2.9 g/dl (3.4-5.0); ALK PHOS 101 U/L (45-117); ANION GAP 10 (8-16); BILIRUBIN,TOTAL 0.8 mg/dL (0.2-1.0); BLOOD UREA NITROGEN 8 mg/dL (7-18); CALCIUM 8.3 mg/dL (8.5-10.1); CHLORIDE 102 mmol/L (98-107); CO2 29 mmol/L (21-32); GLUCOSE,RANDOM 166 mg/dL (74-106); POTASSIUM 3.1 mmol/L (3.5-5.1); SGOT/AST 50 U/L (15-37); SGPT/ALT 43 U/L (12-78); SODIUM 141 mmol/L (136-145); TOT PROT 6.8 g/dl (6.4-8.2)
[2018-01-09] MEDS: BRIMONIDINE TARTRATE 0.2% OPHTHALMIC 5 ML BOTTLE OD SCH (21:59)
[2018-01-09] MEDS: MUPIROCIN 2% TOPICAL OINTMENT FOR DECOLONIZATION NS SCH (22:00)
[2018-01-09] MEDS: DORZOLAMIDE 2% HCL OPHTHALMIC SOLUTION 10 ML BOTTLE OD SCH (22:00)
[2018-01-09] MEDS: TIMOLOL 0.5% OPHTHALMIC SOL 5 ML BOTTLE OD SCH (22:00)
[2018-01-09] MEDS ORDERED: LATANOPROST 0.005% OPHTH SOLN 2.5ML BOTTLE OU SCH ×2 (22:00)
[2018-01-09] MEDS ORDERED: CHLORHEXIDINE GLUCONATE 4% CLEANSER FOR DECOLONIZATION TP SCH (22:00)
[2018-01-09] MEDS ORDERED: POTASSIUM CHLORIDE TABS 20 MEQ TABLET.ER (FP) PO ONE (22:15)
[2018-01-09] MEDS ORDERED: MAGNESIUM OXIDE 400 MG TABLET (FP) PO ONE (22:15)
[2018-01-10 06:41] LABS: BASO % 0.1 % (0-2.0); HEMOGLOBIN 12.8 GM/dL (10.7-15.3); LYMPH % 10.7 % (8-40); MCH 28.1 pg (25.7-33.7); MCHC 32.7 g/dl (32.0-36.0); MEAN PLT VOLUME 8.7 fl (7.5-11.1); NEUT % 81.2 % (42.8-82.8); PLATELET COUNT 214 K/MM3 (134-434); RBC 4.53 M/mm3 (3.60-5.2); RDW 15.2 % (11.6-15.6); WHITE BLOOD COUNT 10.7 K/mm3 (4.0-10.0)
[2018-01-10 07:08] LABS: BLOOD UREA NITROGEN 9 mg/dL (7-18); CO2 30 mmol/L (21-32); GLUCOSE,RANDOM 136 mg/dL (74-106)
[2018-01-10 07:38] LABS: CALCIUM 8.8 mg/dL (8.5-10.1)
--- NOTE | 2018-01-10 09:12 | PN ---
Progress Note, Physician Chief Complaint: No complaints,wants to go home History of Present Illness: S/P Rt liopopleteal artery open thrompectomy Ischemia Rt leg improved - Current Medication List Current Medications: Active Medications Amlodipine Besylate (Norvasc -) 5 mg PO DAILY [facility] Brimonidine Tartrate (Alphagan 0.2% -) 1 drop OD BID [facility] Last Admin: 01/09/18 21:59 Dose: 1 drop Chlorhexidine Gluconate (Hibiclens For Decolonization -) 1 applic TP HS [facility] Last Admin: 01/09/18 22:00 Dose: 1 applic Dorzolamide HCl (Trusopt 2%) 1 drop OD BID [facility] Last Admin: 01/09/18 22:00 Dose: 1 drop Heparin Sodium (Porcine) (Heparin -) 3,000 unit IVPUSH PRN PRN PRN Reason: Heparin Last Admin: 01/09/18 12:30 Dose: 3,000 unit Heparin Sodium (Porcine) (Heparin -) 1,000 unit IVPUSH PRN PRN PRN Reason: Heparin Heparin Sodium (Porcine) (Heparin -) 5,000 unit IVPUSH PRN PRN PRN Reason: Heparin Heparin Sodium/Dextrose (Heparin Infusion -) 25,000 units in 500 mls @ 20 mls/ hr IVPB TITR [facility]; Protocol Last Titration: 01/10/18 07:09 Dose: 800 units/hr, 16 mls/hr Lactated Ringer's (Lactated Ringers Solution) 1,000 mls @ 75 mls/hr IV ASDIR [facility] Last Admin: 01/09/18 14:00 Dose: 75 mls/hr Imatinib Mesylate (Gleevec (Restricted To Oncology) -) 500 mg PO DAILY [facility] Latanoprost (Xalatan 0.005% Eye Drops -) 1 drop OU HS [facility] Last Admin: 01/09/18 22:01 Dose: 1 drop Metoprolol Succinate (Toprol Xl -) 50 mg PO DAILY [facility] Mupirocin (Bactroban Ointment (For Decolonization) -) 1 applic NS BID [facility] Stop: 01/14/18 21:59 Last Admin: 01/09/18 22:00 Dose: 1 applic Timolol Maleate (Timoptic 0.5%) 1 drop OD BID [facility] Last Admin: 01/09/18 22:00 Dose: 1 drop - Objective Vital Signs: Vital Signs Temperature 97.6 F 01/10/18 06:00 Pulse Rate 66 01/10/18 08:00 Respiratory Rate 18 01/10/18 08:00 Blood Pressure 158/94 01/10/18 08:00 O2 Sat by Pulse Oximetry (%) 99 01/09/18 20:25 Constitutional: Yes: No Distress Eyes: Yes: WNL HENT: Yes: WNL Neck: Yes: WNL Cardiovascular: Yes: WNL Respiratory: Yes: WNL Gastrointestinal: Yes: Normal Bowel Sounds ...Rectal Exam: Yes: WNL, Deferred Genitourinary: Yes: WNL Breast(s): Yes: WNL Extremities: Yes: WNL Edema: No Peripheral Pulses: Left Femoral: 2+, Right Femoral: 2+ Wound/Incision: Yes: Clean/Dry Labs: CBC, BMP 01/10/18 05:30 01/10/18 05:30 INR, PTT INR 1.17 (0.82-1.09) H 01/08/18 12:50 Assessment/Plan As per Dr Riggins
[2018-01-10] MEDS ORDERED: IMATINIB MESYLATE 100 MG TABLET PO SCH (10:00)
[2018-01-10] MEDS ORDERED: amLODIPine BESYLATE 5 MG TABLET (FP) PO SCH (10:00)
[2018-01-10] MEDS: MUPIROCIN 2% TOPICAL OINTMENT FOR DECOLONIZATION NS SCH ×2 (10:14→22:11)
[2018-01-10] MEDS: TIMOLOL 0.5% OPHTHALMIC SOL 5 ML BOTTLE OD SCH ×2 (10:15→22:10)
[2018-01-10] MEDS: BRIMONIDINE TARTRATE 0.2% OPHTHALMIC 5 ML BOTTLE OD SCH ×2 (10:15→22:10)
[2018-01-10] MEDS: DORZOLAMIDE 2% HCL OPHTHALMIC SOLUTION 10 ML BOTTLE OD SCH ×2 (10:17→22:10)
--- NOTE | 2018-01-10 11:02 | PN ---
Progress Note (short form) - Note Progress Note: POD #1 - s/p right lower extremity open thrombectomy with angiogram under general anesthesia. VSS. Pt. doing well, sitting up comfortably in bed. No complaints. No apparent anesthetic complicaitons noted. Continue current care.
--- NOTE | 2018-01-10 11:06 | PN ---
Teaching Attending Note Name of Resident: Case Sprague ATTENDING PHYSICIAN STATEMENT I saw and evaluated the patient. I reviewed the resident's note and discussed the case with the resident. I agree with the resident's findings and plan as documented. SUBJECTIVE: Pt seen and examined in the ICU. Pulses intact. Denies shortness of breath or chest pain. OBJECTIVE: Vital Signs Period Temp Pulse Resp BP Sys/Garnett Pulse Ox Last 24 Hr 97 F-98.6 F 56-82 12-21 135-179/72-112 98-100 Intake & Output 01/07/18 01/08/18 01/09/18 01/10/18 23:59 23:59 23:59 23:59 Intake Total 220 1329 1144 Output Total 300 Balance 220 1029 1144 Weight 70.851 kg Gen: NAD at rest Heart: irregular Lung: decreased breath sounds at the bases Abd: soft, nontender Ext: cool, +DP CBC, BMP 01/10/18 05:30 01/10/18 05:30 Active Medications Amlodipine Besylate (Norvasc -) 5 mg PO DAILY [facility] Last Admin: 01/10/18 10:14 Dose: 5 mg Brimonidine Tartrate (Alphagan 0.2% -) 1 drop OD BID [facility] Last Admin: 01/10/18 10:15 Dose: 1 drop Chlorhexidine Gluconate (Hibiclens For Decolonization -) 1 applic TP HS [facility] Last Admin: 01/09/18 22:00 Dose: 1 applic Dorzolamide HCl (Trusopt 2%) 1 drop OD BID [facility] Last Admin: 01/10/18 10:17 Dose: 1 drop Heparin Sodium (Porcine) (Heparin -) 3,000 unit IVPUSH PRN PRN PRN Reason: Heparin Last Admin: 01/09/18 12:30 Dose: 3,000 unit Heparin Sodium (Porcine) (Heparin -) 1,000 unit IVPUSH PRN PRN PRN Reason: Heparin Heparin Sodium (Porcine) (Heparin -) 5,000 unit IVPUSH PRN PRN PRN Reason: Heparin Heparin Sodium/Dextrose (Heparin Infusion -) 25,000 units in 500 mls @ 20 mls/ hr IVPB TITR [facility]; Protocol Last Titration: 01/10/18 07:09 Dose: 800 units/hr, 16 mls/hr Lactated Ringer's (Lactated Ringers Solution) 1,000 mls @ 75 mls/hr IV ASDIR [facility] Last Admin: 01/09/18 14:00 Dose: 75 mls/hr Imatinib Mesylate (Gleevec (Restricted To Oncology) -) 500 mg PO DAILY [facility] Latanoprost (Xalatan 0.005% Eye Drops -) 1 drop OU HS [facility] Last Admin: 01/09/18 22:01 Dose: 1 drop Metoprolol Succinate (Toprol Xl -) 50 mg PO DAILY [facility] Last Admin: 01/10/18 10:23 Dose: 50 mg Mupirocin (Bactroban Ointment (For Decolonization) -) 1 applic NS BID [facility] Stop: 01/14/18 21:59 Last Admin: 01/10/18 10:14 Dose: 1 applic Timolol Maleate (Timoptic 0.5%) 1 drop OD BID [facility] Last Admin: 01/10/18 10:15 Dose: 1 drop ASSESSMENT AND PLAN: Right Iliac/DIETITIAN RESEARCH/DFA/SFA/Popliteal Artery Emboli s/p Open Thrombectomy Atrial Fibrillation HTN Hyperlipidemia h/o GIST - pulse checks - continue anticoagulation - transition to PO anticoagulation - rate controlled with metoprolol - PO as tolerated - can monitor on telemetry
--- NOTE | 2018-01-10 11:23 | PN ---
Progress Note (short form) - Note Progress Note: Vascular Surgery Pt seen and examined. Right leg warm. Good dopplerable DP pulse . Cardiology eval for Afib. Cont IV heparin drip. Pt not having any pain. Wilfredo Riggins DO
[2018-01-10 12:19] LABS: ANION GAP 7 (8-16); CHLORIDE 104 mmol/L (98-107); POTASSIUM 3.9 mmol/L (3.5-5.1); SODIUM 141 mmol/L (136-145)
--- NOTE | 2018-01-10 12:53 | PN ---
Physical Exam: SUBJECTIVE: Patient seen and examined at bedside. S/P thrombectomy. Leg pain is improved. No overnight events. no new complaints. Denies CP,CHRISTIANSON,SOB, palpitations ,abdominal pain, N/V. OBJECTIVE: Vital Signs Period Temp Pulse Resp BP Sys/Garnett Pulse Ox Last 24 Hr 97 F-98.6 F 56-82 12-21 135-173/72-112 98-100 GENERAL: awake and alert HEAD:NC/AT EYES: PERRL, EOMI, ENT: moist mucous membranes. NECK: supple. LUNGS: CTAB, no wheezes, no crackles, no accessory muscle use. HEART: Irregularly irregular, S1, S2 without murmur, rub or gallop. ABDOMEN: Soft, NT/ND, NABS EXTREMITIES: 1+ pulses DP pulse on R side. , warm, well-perfused, no edema. Laboratory Results - last 24 hr 01/09/18 01/09/18 01/09/18 20:43 20:43 20:43 WBC 10.7 H RBC 5.14 Hgb 14.2 Hct 44.4 MCV 86.4 MCH 27.7 MCHC 32.1 RDW 14.9 Plt Count 227 MPV 9.4 Absolute Neuts (auto) Neutrophils % Lymphocytes % Monocytes % Eosinophils % Basophils % Nucleated RBC % PTT (Actin FS) 103.4 H Sodium 141 Potassium 3.1 L Chloride 102 Carbon Dioxide 29 Anion Gap 10 BUN 8 Creatinine 1.0 Creat Clearance w eGFR 52.57 Random Glucose 166 H Lactic Acid Calcium 8.3 L Total Bilirubin 0.8 D AST 50 H ALT 43 Alkaline Phosphatase 101 Total Protein 6.8 Albumin 2.9 L Blood Type Antibody Screen 01/09/18 01/09/18 01/10/18 20:43 20:43 05:30 WBC RBC Hgb Hct MCV MCH MCHC RDW Plt Count MPV Absolute Neuts (auto) Neutrophils % Lymphocytes % Monocytes % Eosinophils % Basophils % Nucleated RBC % PTT (Actin FS) 82.7 H Sodium Potassium Chloride Carbon Dioxide Anion Gap BUN Creatinine Creat Clearance w eGFR Random Glucose Lactic Acid 2.5 H* Calcium Total Bilirubin AST ALT Alkaline Phosphatase Total Protein Albumin Blood Type O NEGATIVE Antibody Screen Negative 01/10/18 01/10/18 05:30 05:30 WBC 10.7 H RBC 4.53 Hgb 12.8 Hct 39.0 MCV 86.0 MCH 28.1 MCHC 32.7 RDW 15.2 Plt Count 214 MPV 8.7 Absolute Neuts (auto) 8.7 Neutrophils % 81.2 Lymphocytes % 10.7 D Monocytes % 8.0 Eosinophils % 0.0 D Basophils % 0.1 Nucleated RBC % 0 PTT (Actin FS) Sodium 141 Potassium 3.9 Chloride 104 Carbon Dioxide 30 Anion Gap 7 L BUN 9 Creatinine 1.0 Creat Clearance w eGFR Random Glucose 136 H Lactic Acid Calcium 8.8 Total Bilirubin AST ALT Alkaline Phosphatase Total Protein Albumin Blood Type Antibody Screen Active Medications Generic Name Dose Route Start Last Admin Trade Name Freq PRN Reason Stop Dose Admin Amlodipine Besylate 5 mg 01/10/18 10:00 01/10/18 10:14 Norvasc - PO 5 mg DAILY [facility] Administration Brimonidine Tartrate 1 drop 01/09/18 22:00 01/10/18 10:15 Alphagan 0.2% - OD 1 drop BID [facility] Administration Chlorhexidine Gluconate 1 applic 01/09/18 22:00 01/09/18 22:00 Hibiclens For Decolonization - TP 1 applic HS [facility] Administration Dorzolamide HCl 1 drop 01/09/18 22:00 01/10/18 10:17 Trusopt 2% OD 1 drop BID [facility] Administration Heparin Sodium (Porcine) 3,000 unit 01/09/18 12:30 01/09/18 12:30 Heparin - IVPUSH 3,000 unit PRN PRN Administration Heparin Heparin Sodium (Porcine) 1,000 unit 01/09/18 12:31 Heparin - IVPUSH PRN PRN Heparin Heparin Sodium (Porcine) 5,000 unit 01/09/18 12:31 Heparin - IVPUSH PRN PRN Heparin Heparin Sodium/Dextrose 25,000 units in 500 mls @ 20 mls/hr 01/09/18 12:45 07:09 Heparin Infusion - IVPB 800 units/hr TITR [facility] 16 mls/hr Titration Protocol 1,000 UNITS/HR Imatinib Mesylate 500 mg 01/10/18 10:00 Gleevec (Restricted To Oncology) - PO DAILY [facility] Latanoprost 1 drop 01/09/18 22:00 01/09/18 22:01 Xalatan 0.005% Eye Drops - OU 1 drop HS [facility] Administration Metoprolol Succinate 50 mg 01/10/18 10:00 01/10/18 10:23 Toprol Xl - PO 50 mg DAILY [facility] Administration Mupirocin 1 applic 01/09/18 22:00 01/10/18 10:14 Bactroban Ointment (For Decolonization) - NS 01/14/18 21:59 1 applic BID [facility] Administration Timolol Maleate 1 drop 01/09/18 22:00 01/10/18 10:15 Timoptic 0.5% OD 1 drop BID [facility] Administration ASSESSMENT/PLAN: 87 yo F with PMhx of Afib presents with 4 day history of cold limb found to have multiple levels of thrombosis, s/p thrombectomy currently managed in ICU. Neuro: * Awake and alert * pain control Pulm: * No acute pulmonary issues * Supplemental O2 PRN CV: * AC with heparin ggt. * Vascular consult appreciated. * Doppler checks Q4H * Limb checks Q4H * Afib :CHADVASC= 4 (not on AC prior to admission) rate controlled on Metoprolol * Will need to transitioned to NOAC. * BP control with Amlodipine and Metoprolol * Will consult Cardiology. GI: * Tolerating diet * No GI issues at this time. DISPO: Can be transferred to Telemetry. Visit type - Emergency Visit Emergency Visit: Yes ED Registration Date: 01/08/18 Care time: The patient presented to the Emergency Department on the above date and was hospitalized for further evaluation of their emergent condition. - New Patient This patient is new to me today: Yes Date on this admission: 01/10/18 - Critical Care Critical Care patient: Yes Total Critical Care Time (in minutes): 47 Critical Care Statement: The care of this patient involved high complexity decision making to prevent further life threatening deterioration of the patient 's condition and/or to evaluate & treat vital organ system(s) failure or risk of failure.
[2018-01-10] MEDS: HEPARIN INFUSION - 25,000 UNITS/500 ML INFUS.BAG IVPB SCH (13:07)
--- NOTE | 2018-01-10 14:00 | CON.CARD ---
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 Probably embolus, underwent open thrombectomy right iliac, ASSISTANT WAREHOUSE MANAGER, DFA, SFA, Popliteal artery, with right lower ext angiogram with relief of ischemic symptoms. Patient denies chest pain, dysnea, palpitations, near or true syncope, orthopnea, PND or LE edema. - History Source History Provided By: Patient Limitations to Obtaining History: No Limitations - Past Medical History [employer]: No: Alzheimer's, CVA, Dementia, Migraine, Multiple Sclerosis, Peripheral Neuropathy, Parkinson's, Seizure, Syncope, TIA, Vertigo, Other Cardio/Vascular: Yes: AFIB, HTN, Hyperlipdemia, Other (arrthymmia, PVD) Pulmonary: No: Asthma, Bronchitis, Cancer, COPD, O2 Dependent, Pneumonia, Previously Intubated, Pulmonary Embolus, Pulmonary Fibrosis, Sleep Apnea, Other Gastrointestinal: Yes: Other (GIST) Hepatobiliary: No: Cirrhosis, Cholelithiasis, Cholecystitis, Choledocholithiasis , Hepatitis A, Hepatitis B, Hepatitis C, Other Renal/: Yes: UTI ...: No Infectious Disease: No: AIDS, C-Diff, Herpes Zoster, HIV, MRSA, STD's, Tuberculosis, VREF, Other Psych: No: Addictions, Anxiety, Bipolar, Depression, Panic, Psychosis, Schizophrenia, Other Musculoskeletal: No: Bursitis, Chronic low back pain, Hemiparesis, Hemiplegia, Osteoarthritis, Paraplegia, Other Rheumatology: Yes: Gout ENT: No: Allergic Rhinitis, Sinusitis, Other Endocrine: No: Johnson's Disease, Rochester's Disease, Diabetes Insipidus, Diabetes Mellitus, Hyperparathyroidism, Hyperthyroidism, Hypothyroidism, Osteopenia, SIADH, Other Dermatology: No: Basal Cell, Cellulitis, Eczema, Melanoma, Psoriasis, Squamous Cell, Other - Past Surgical History Past Surgical History: No: None, AAA Repair, AICD, Amputation, Appendectomy, Arthrosocopy, AV Fistula/Graft, Bariatric Surgery, Breast Biopsy, Bypass, CABG, Carotid Endarterectomy, Cataract Removal, Cholecystectomy, Colectomy, Colonoscopy, Colostomy, Craniotomy, , Cystectomy, Hernia Repair, Hysterectomy, Ileal Conduit, Ileosotomy, Joint Replacement, Kidney Transplant, Laminectomy, Liver Transplant, Mastectomy, Nephrectomy, Oopherectomy, Orchiectomy, Permanent Pacemaker, Prostatectomy, Splenectomy, Stent, Thoracotomy , TURP, Tonsillectomy, Tubal Ligation, Upper Endoscopy, Valve Replacement, Vasectomy, Vein Stripping/Ligation - Alcohol/Substance Use Hx Alcohol Use: No - Smoking History Smoking history: Never smoked Have you smoked in the past 12 months: No - Social History Usual Living Arrangement: With Child ADL: Independent History of Recent Travel: No Home Medications - Allergies Allergies/Adverse Reactions: Allergies Allergy/AdvReac Type Severity Reaction Status Date / Time grapes Allergy Uncoded 01/10/18 12:21 - Home Medications Home Medications: Ambulatory Orders Amlodipine Besylate 5 mg PO DAILY 01/03/18 Brimonidine Tartrate/Timolol [Combigan Eye Drops] 1 drop OD BID 01/08/18 Cephalexin [Keflex] 500 mg PO BID 01/08/18 Dorzolamide HCl [Trusopt 2%] 1 drop OD BID 01/08/18 Imatinib Mesylate [Gleevec] 500 mg PO DAILY 01/08/18 Latanoprost 0.005% Eye Drops [Xalatan 0.005% Eye Drops -] 1 drop OU HS 01/08/18 Metoprolol Succinate [Toprol Xl] 50 mg PO DAILY 01/08/18 Review of Systems - Review of Systems Musculoskeletal: reports: Extremity Pain Integumentary: reports: Change in Color Vital Signs: Vital Signs Temperature 97 F L 01/10/18 10:00 Pulse Rate 66 01/10/18 12:00 Respiratory Rate 18 01/10/18 12:00 Blood Pressure 128/68 01/10/18 12:00 O2 Sat by Pulse Oximetry (%) 100 01/10/18 09:00 Constitutional: Yes: No Distress, Calm Neck: Yes: Supple Respiratory: Yes: Regular, CTA Bilaterally Gastrointestinal: Yes: Normal Bowel Sounds, Soft Cardiovascular: Yes: Pulse Irregular JVD: No Carotid Bruit: No Heart Sounds: Yes: S1, S2 Murmur: Yes: Systolic Murmur, Grade 1 Edema: No - Other Data Labs, Other Data: CBC, BMP 01/10/18 05:30 01/10/18 05:30 INR, PTT INR 1.17 (0.82-1.09) H 01/08/18 12:50 Afib @ 64 PRWP LAD Imaging - Results Chest X-ray: Report Reviewed (NAD) Cat Scan: Report Reviewed (Chest CTA: Occluded right externial iliac and ASSISTANT WAREHOUSE MANAGER) Problem List - Problems (1) Persistent atrial fibrillation Code(s): I48.1 - PERSISTENT ATRIAL FIBRILLATION (2) Hypertensive cardiomyopathy Code(s): I11.9 - HYPERTENSIVE HEART DISEASE WITHOUT HEART FAILURE; I43 - CARDIOMYOPATHY IN DISEASES CLASSIFIED ELSEWHERE Qualifiers: Heart failure presence: without heart failure Qualified Code(s): I11.9 - Hypertensive heart disease without heart failure; I43 - Cardiomyopathy in diseases classified elsewhere (3) Embolus and thrombosis of iliac artery Code(s): I74.5 - EMBOLISM AND THROMBOSIS OF ILIAC ARTERY (4) Peripheral vascular disease Code(s): I73.9 - PERIPHERAL VASCULAR DISEASE, UNSPECIFIED (5) Thrombosis of common femoral artery Code(s): I74.3 - EMBOLISM AND THROMBOSIS OF ARTERIES OF THE LOWER EXTREMITIES Assessment/Plan 1. Acute right limb ischemia referable to Right Iliac/ASSISTANT WAREHOUSE MANAGER/DFA/SFA/Popliteal Artery Emboli s/p Open Thrombectomy 2. Persistent Atrial Fibrillation on heparin gtt 3. HTN 4. h/o GIST P:1. Heparin gtt->Eliquis 5 bid given elevated risk score 2. Continue Toprol XL 50 qd, Norvasc 5 qd 3. F/u echocardiogram to assess ventricular and valve fxn, check TSH 4. Thank you for consultative opportunity
[2018-01-10] MEDS ORDERED: HEPARIN NA (PORCINE) 5,000 UNITS/ML 1ML VIAL IVPUSH PRN ×4 (15:40→17:28)
[2018-01-10] MEDS: APIXABAN 5 MG TABLET PO SCH ×2 (16:12→22:09)
[2018-01-10] MEDS ORDERED: HEPARIN INFUSION - 25,000 UNITS/500 ML INFUS.BAG IV SCH (17:30)
--- NOTE | 2018-01-10 19:21 | CONSULT ---
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 Probably embolus, underwent open thrombectomy right iliac, MEDICAL OFFICE TECHNICIAN, DFA, SFA, Popliteal artery, with right lower ext angiogram with relief of ischemic symptoms. Patient denies chest pain, dysnea, palpitations, near or true syncope, orthopnea, PND or LE edema. - History Source History Provided By: Patient Limitations to Obtaining History: No Limitations - Past Medical History Cardio/Vascular: Yes: AFIB, HTN, Hyperlipdemia, Other (arrthymmia, PVD) Gastrointestinal: Yes: Other (GIST) Rheumatology: Yes: Gout - Past Surgical History Past Surgical History: h/o resectionof GIST - Smoking History Smoking history: Never smoked - Social History Usual Living Arrangement: With Child ADL: Independent - Allergies Allergies/Adverse Reactions: Allergies Allergy/AdvReac Type Severity Reaction Status Date / Time grapes Allergy Uncoded 01/10/18 12:21 - Home Medications Home Medications: Ambulatory Orders Amlodipine Besylate 5 mg PO DAILY 01/03/18 Brimonidine Tartrate/Timolol [Combigan Eye Drops] 1 drop OD BID 01/08/18 Cephalexin [Keflex] 500 mg PO BID 01/08/18 Dorzolamide HCl [Trusopt 2%] 1 drop OD BID 01/08/18 Imatinib Mesylate [Gleevec] 500 mg PO DAILY 01/08/18 Latanoprost 0.005% Eye Drops [Xalatan 0.005% Eye Drops -] 1 drop OU HS 01/08/18 Metoprolol Succinate [Toprol Xl] 50 mg PO DAILY 01/08/18 Vital Signs: Last Vital Signs Temp Pulse Resp BP Pulse Ox 98 F 70 18 160/90 100 01/10/18 18:00 01/10/18 18:00 01/10/18 18:00 01/10/18 18:00 01/10/18 09:00 Constitutional: Yes: No Distress, Calm Neck: Yes: Supple Respiratory: Yes: Regular, CTA Bilaterally Gastrointestinal: Yes: Normal Bowel Sounds, Soft Cardiovascular: Yes: Pulse Irregular Heart Sounds: Yes: S1, S2 Murmur: Yes: Systolic Murmur, Grade 1 extremities--no cyanosis.cool tp touch. painless. mobile Imaging - Results Chest X-ray: Report Reviewed (NAD) Cat Scan: Report Reviewed (Chest CTA: Occluded right externial iliac and MEDICAL OFFICE TECHNICIAN) Problem List - Problems (1) Persistent atrial fibrillation Code(s): I48.1 - PERSISTENT ATRIAL FIBRILLATION (2) Hypertensive cardiomyopathy Code(s): I11.9 - HYPERTENSIVE HEART DISEASE WITHOUT HEART FAILURE; I43 - CARDIOMYOPATHY IN DISEASES CLASSIFIED ELSEWHERE Qualifiers: Heart failure presence: without heart failure Qualified Code(s): I11.9 - Hypertensive heart disease without heart failure; I43 - Cardiomyopathy in diseases classified elsewhere (3) Embolus and thrombosis of iliac artery Code(s): I74.5 - EMBOLISM AND THROMBOSIS OF ILIAC ARTERY (4) Peripheral vascular disease Code(s): I73.9 - PERIPHERAL VASCULAR DISEASE, UNSPECIFIED (5) Thrombosis of common femoral artery Code(s): I74.3 - EMBOLISM AND THROMBOSIS OF ARTERIES OF THE LOWER EXTREMITIES Assessment/Plan 1. Acute right limb ischemia referable to Right Iliac/MEDICAL OFFICE TECHNICIAN/DFA/SFA/Popliteal Artery Emboli s/p Open Thrombectomy 2. Persistent Atrial Fibrillation 3. HTN 4. h/o GIST 5. 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 Dilated CBD- unchanged . mildly increased pancratic ductL DILATATION Limb ischemia due to emboli?/afib --now on eliquis h/o GIST--s/p resection. CT a/p shows no recurrence.. will check chest CT. on gleevec will follow
[2018-01-10] MEDS: LATANOPROST 0.005% OPHTH SOLN 2.5ML BOTTLE OU SCH (22:10)
[2018-01-10] MEDS ORDERED: amLODIPine BESYLATE 5 MG TABLET (FP) PO ONE (22:18)
[2018-01-11 07:43] LABS: HEMATOCRIT 35.7 % (32.4-45.2); HEMOGLOBIN 11.7 GM/dL (10.7-15.3); MCH 28.2 pg (25.7-33.7); MCHC 32.8 g/dl (32.0-36.0); MEAN PLT VOLUME 9.2 fl (7.5-11.1); PLATELET COUNT 216 K/MM3 (134-434); RBC 4.15 M/mm3 (3.60-5.2)
--- NOTE | 2018-01-11 08:55 | PN ---
Progress Note, Physician History of Present Illness: Right lower extremity discomfort resolving, rate-controlled afib persists. Chest CT shows no metastatic disease of GIST. - Current Medication List Current Medications: Active Medications Amlodipine Besylate (Norvasc -) 5 mg PO DAILY [facility] Apixaban (Eliquis -) 5 mg PO BID [facility] Last Admin: 01/10/18 22:09 Dose: 5 mg Brimonidine Tartrate (Alphagan 0.2% -) 1 drop OD BID [facility] Last Admin: 01/10/18 22:10 Dose: 1 drop Dorzolamide HCl (Trusopt 2%) 1 drop OD BID [facility] Last Admin: 01/10/18 22:10 Dose: 1 drop Imatinib Mesylate (Gleevec (Restricted To Oncology) -) 500 mg PO DAILY [facility] Latanoprost (Xalatan 0.005% Eye Drops -) 1 drop OU HS [facility] Last Admin: 01/10/18 22:10 Dose: 1 drop Metoprolol Succinate (Toprol Xl -) 50 mg PO DAILY [facility] Mupirocin (Bactroban Ointment (For Decolonization) -) 1 applic NS BID [facility] Stop: 01/14/18 21:59 Last Admin: 01/10/18 22:11 Dose: 1 applic Timolol Maleate (Timoptic 0.5%) 1 drop OD BID [facility] Last Admin: 01/10/18 22:10 Dose: 1 drop - Objective Vital Signs: Vital Signs Temperature 98.3 F 01/11/18 08:54 Pulse Rate 76 01/11/18 08:54 Respiratory Rate 18 01/11/18 08:54 Blood Pressure 136/72 01/11/18 08:54 O2 Sat by Pulse Oximetry (%) 98 01/11/18 00:23 Constitutional: Yes: No Distress, Calm Neck: Yes: Supple Cardiovascular: Yes: Pulse Irregular Respiratory: Yes: Regular, Diminished Gastrointestinal: Yes: Normal Bowel Sounds, Soft Edema: No Labs: CBC, BMP 01/11/18 07:00 01/10/18 05:30 INR, PTT INR 1.17 (0.82-1.09) H 01/08/18 12:50 Problem List - Problems (1) Persistent atrial fibrillation Code(s): I48.1 - PERSISTENT ATRIAL FIBRILLATION (2) Hypertensive cardiomyopathy Code(s): I11.9 - HYPERTENSIVE HEART DISEASE WITHOUT HEART FAILURE; I43 - CARDIOMYOPATHY IN DISEASES CLASSIFIED ELSEWHERE Qualifiers: Qualified Code(s): I11.9 - Hypertensive heart disease without heart failure; I43 - Cardiomyopathy in diseases classified elsewhere (3) Embolus and thrombosis of iliac artery Code(s): I74.5 - EMBOLISM AND THROMBOSIS OF ILIAC ARTERY (4) Peripheral vascular disease Code(s): I73.9 - PERIPHERAL VASCULAR DISEASE, UNSPECIFIED (5) Thrombosis of common femoral artery Code(s): I74.3 - EMBOLISM AND THROMBOSIS OF ARTERIES OF THE LOWER EXTREMITIES Assessment/Plan 01/10/2018 Echocardiogram: Normal LV size and fxn, mild cLVH, mild TR 1. Acute right limb ischemia referable to Right Iliac/ELECTRICIAN THIRD/DFA/SFA/Popliteal Artery Emboli s/p Open Thrombectomy 2. Persistent Atrial Fibrillation on heparin gtt 3. HTN 4. h/o GIST s/p resection on Gleevec P:1. Continue Eliquis 5 bid given elevated risk score 2. Continue Toprol XL 50 qd, Norvasc 5 qd 3. D/c planning
[2018-01-11] MEDS: APIXABAN 5 MG TABLET PO SCH ×2 (09:28→22:27)
[2018-01-11] MEDS: amLODIPine BESYLATE 5 MG TABLET (FP) PO SCH (09:28)
[2018-01-11] MEDS: TIMOLOL 0.5% OPHTHALMIC SOL 5 ML BOTTLE OD SCH ×2 (09:30→22:32)
[2018-01-11] MEDS: BRIMONIDINE TARTRATE 0.2% OPHTHALMIC 5 ML BOTTLE OD SCH ×2 (09:31→22:26)
[2018-01-11] MEDS: DORZOLAMIDE 2% HCL OPHTHALMIC SOLUTION 10 ML BOTTLE OD SCH ×2 (09:31→22:30)
[2018-01-11] MEDS ORDERED: IMATINIB MESYLATE 100 MG TABLET PO SCH ×2 (10:00→23:14)
--- NOTE | 2018-01-11 14:07 | PN ---
Progress Note, Physician Chief Complaint: feels better History of Present Illness: S/P femoral artery thrombectomy DP pulse felt - Current Medication List Current Medications: Active Medications Amlodipine Besylate (Norvasc -) 5 mg PO DAILY [facility] Last Admin: 01/11/18 09:28 Dose: 5 mg Apixaban (Eliquis -) 5 mg PO BID [facility] Last Admin: 01/11/18 09:28 Dose: 5 mg Brimonidine Tartrate (Alphagan 0.2% -) 1 drop OD BID [facility] Last Admin: 01/11/18 09:31 Dose: 1 drop Dorzolamide HCl (Trusopt 2%) 1 drop OD BID [facility] Last Admin: 01/11/18 09:31 Dose: 1 drop Imatinib Mesylate (Gleevec (Restricted To Oncology) -) 500 mg PO DAILY [facility] Latanoprost (Xalatan 0.005% Eye Drops -) 1 drop OU HS [facility] Last Admin: 01/10/18 22:10 Dose: 1 drop Metoprolol Succinate (Toprol Xl -) 50 mg PO DAILY [facility] Last Admin: 01/11/18 09:28 Dose: 50 mg Mupirocin (Bactroban Ointment (For Decolonization) -) 1 applic NS BID [facility] Stop: 01/14/18 21:59 Last Admin: 01/10/18 22:11 Dose: 1 applic Timolol Maleate (Timoptic 0.5%) 1 drop OD BID [facility] Last Admin: 01/11/18 09:30 Dose: 1 drop - Objective Vital Signs: Vital Signs Temperature 98.3 F 01/11/18 08:54 Pulse Rate 76 01/11/18 08:54 Respiratory Rate 18 01/11/18 09:00 Blood Pressure 136/72 01/11/18 08:54 O2 Sat by Pulse Oximetry (%) 98 01/11/18 09:00 Constitutional: Yes: Calm Eyes: Yes: WNL HENT: Yes: WNL Neck: Yes: WNL Cardiovascular: Yes: WNL Respiratory: Yes: WNL Gastrointestinal: Yes: Normal Bowel Sounds ...Rectal Exam: Yes: Deferred Extremities: Yes: WNL Edema: No Labs: CBC, BMP 01/11/18 07:00 01/10/18 05:30 INR, PTT INR 1.17 (0.82-1.09) H 01/08/18 12:50 Assessment/Plan Case discussed with Dr Khan ,[facility] Will find out more details
[2018-01-11] MEDS: MUPIROCIN 2% TOPICAL OINTMENT FOR DECOLONIZATION NS SCH ×2 (17:22→21:25)
--- NOTE | 2018-01-11 17:26 | PN ---
Progress Note (short form) - Note Progress Note: Vascular surgery Pt seen and examined. Doing well. Right foot warm. Palpable PT pulse. Dressing removed from right groin. Cont eliquis. Daysi need to be removed in one week. Wilfredo Riggins DO
[2018-01-11] MEDS: LATANOPROST 0.005% OPHTH SOLN 2.5ML BOTTLE OU SCH (22:28)
--- NOTE | 2018-01-11 23:17 | PN ---
Progress Note (short form) - Note Progress Note: gleevec( moderate CY inhibitor) could increase levels of eliquis. monitoring of therapy is suggested . It could increase coumadin levels aswell close monitoring for bleeding complications will discuss with cardiology team aswell
[2018-01-12 06:59] LABS: HEMOGLOBIN 10.9 GM/dL (10.7-15.3); MCH 28.3 pg (25.7-33.7); MEAN CELL VOLUME 85.7 fl (80-96); MEAN PLT VOLUME 8.4 fl (7.5-11.1); PLATELET COUNT 199 K/MM3 (134-434); RBC 3.86 M/mm3 (3.60-5.2); WHITE BLOOD COUNT 8.5 K/mm3 (4.0-10.0)
[2018-01-12] MEDS: APIXABAN 5 MG TABLET PO SCH ×2 (09:11→22:17)
[2018-01-12] MEDS: amLODIPine BESYLATE 5 MG TABLET (FP) PO SCH (09:11)
[2018-01-12] MEDS: BRIMONIDINE TARTRATE 0.2% OPHTHALMIC 5 ML BOTTLE OD SCH ×2 (09:12→22:18)
[2018-01-12] MEDS: TIMOLOL 0.5% OPHTHALMIC SOL 5 ML BOTTLE OD SCH ×2 (09:13→22:24)
[2018-01-12] MEDS: MUPIROCIN 2% TOPICAL OINTMENT FOR DECOLONIZATION NS SCH ×2 (09:13→22:17)
[2018-01-12] MEDS: DORZOLAMIDE 2% HCL OPHTHALMIC SOLUTION 10 ML BOTTLE OD SCH ×2 (09:13→22:19)
--- NOTE | 2018-01-12 09:18 | PN ---
Progress Note, Physician Chief Complaint: Feels good - Current Medication List Current Medications: Active Medications Amlodipine Besylate (Norvasc -) 5 mg PO DAILY [facility] Last Admin: 01/11/18 09:28 Dose: 5 mg Apixaban (Eliquis -) 5 mg PO BID [facility] Last Admin: 01/11/18 22:27 Dose: 5 mg Brimonidine Tartrate (Alphagan 0.2% -) 1 drop OD BID [facility] Last Admin: 01/11/18 22:26 Dose: 1 drop Dorzolamide HCl (Trusopt 2%) 1 drop OD BID [facility] Last Admin: 01/11/18 22:30 Dose: 1 drop Imatinib Mesylate (Gleevec (Restricted To Oncology) -) 400 mg PO DAILY [facility] Latanoprost (Xalatan 0.005% Eye Drops -) 1 drop OU HS [facility] Last Admin: 01/11/18 22:28 Dose: 1 drop Metoprolol Succinate (Toprol Xl -) 50 mg PO DAILY [facility] Last Admin: 01/11/18 09:28 Dose: 50 mg Mupirocin (Bactroban Ointment (For Decolonization) -) 1 applic NS BID [facility] Stop: 01/14/18 21:59 Last Admin: 01/11/18 21:25 Dose: Not Given Timolol Maleate (Timoptic 0.5%) 1 drop OD BID [facility] Last Admin: 01/11/18 22:32 Dose: 1 drop - Objective Vital Signs: Vital Signs Temperature 98.2 F 01/12/18 08:15 Pulse Rate 66 01/12/18 08:15 Respiratory Rate 14 01/12/18 08:15 Blood Pressure 154/78 01/12/18 08:15 O2 Sat by Pulse Oximetry (%) 97 01/11/18 20:46 Constitutional: Yes: No Distress Eyes: Yes: WNL HENT: Yes: WNL Neck: Yes: WNL Cardiovascular: Yes: WNL Respiratory: Yes: WNL Gastrointestinal: Yes: WNL ...Rectal Exam: Yes: Deferred Genitourinary: Yes: WNL Breast(s): Yes: WNL Musculoskeletal: Yes: WNL Peripheral Pulses WNL: Yes Labs: CBC, BMP 01/12/18 06:15 01/10/18 05:30 INR, PTT INR 1.17 (0.82-1.09) H 01/08/18 12:50 Assessment/Plan PT for ambulation
--- NOTE | 2018-01-12 12:01 | PN ---
Progress Note, Physician History of Present Illness: Right lower extremity discomfort resolving, rate-controlled afib persists. Chest CT shows no metastatic disease of GIST. - Current Medication List Current Medications: Active Medications Amlodipine Besylate (Norvasc -) 5 mg PO DAILY [facility] Last Admin: 01/12/18 09:11 Dose: 5 mg Apixaban (Eliquis -) 5 mg PO BID [facility] Last Admin: 01/12/18 09:11 Dose: 5 mg Brimonidine Tartrate (Alphagan 0.2% -) 1 drop OD BID [facility] Last Admin: 01/12/18 09:12 Dose: 1 drop Dorzolamide HCl (Trusopt 2%) 1 drop OD BID [facility] Last Admin: 01/12/18 09:13 Dose: 1 drop Imatinib Mesylate (Gleevec (Restricted To Oncology) -) 400 mg PO DAILY [facility] Latanoprost (Xalatan 0.005% Eye Drops -) 1 drop OU HS [facility] Last Admin: 01/11/18 22:28 Dose: 1 drop Metoprolol Succinate (Toprol Xl -) 50 mg PO DAILY [facility] Last Admin: 01/12/18 09:11 Dose: 50 mg Mupirocin (Bactroban Ointment (For Decolonization) -) 1 applic NS BID [facility] Stop: 01/14/18 21:59 Last Admin: 01/12/18 09:13 Dose: Not Given Timolol Maleate (Timoptic 0.5%) 1 drop OD BID [facility] Last Admin: 01/12/18 09:13 Dose: 1 drop - Objective Vital Signs: Vital Signs Temperature 98.2 F 01/12/18 08:15 Pulse Rate 66 01/12/18 08:15 Respiratory Rate 14 01/12/18 09:00 Blood Pressure 154/78 01/12/18 08:15 O2 Sat by Pulse Oximetry (%) 97 01/12/18 09:00 Constitutional: Yes: No Distress, Calm, Thin Neck: Yes: Supple Cardiovascular: Yes: Pulse Irregular Respiratory: Yes: Regular, Diminished Gastrointestinal: Yes: Normal Bowel Sounds, Soft Edema: No Labs: CBC, BMP 01/12/18 06:15 01/10/18 05:30 INR, PTT INR 1.17 (0.82-1.09) H 01/08/18 12:50 Problem List - Problems (1) Persistent atrial fibrillation Code(s): I48.1 - PERSISTENT ATRIAL FIBRILLATION (2) Hypertensive cardiomyopathy Code(s): I11.9 - HYPERTENSIVE HEART DISEASE WITHOUT HEART FAILURE; I43 - CARDIOMYOPATHY IN DISEASES CLASSIFIED ELSEWHERE Qualifiers: Heart failure presence: without heart failure Qualified Code(s): I11.9 - Hypertensive heart disease without heart failure; I43 - Cardiomyopathy in diseases classified elsewhere (3) Embolus and thrombosis of iliac artery Code(s): I74.5 - EMBOLISM AND THROMBOSIS OF ILIAC ARTERY (4) Peripheral vascular disease Code(s): I73.9 - PERIPHERAL VASCULAR DISEASE, UNSPECIFIED (5) Thrombosis of common femoral artery Code(s): I74.3 - EMBOLISM AND THROMBOSIS OF ARTERIES OF THE LOWER EXTREMITIES Assessment/Plan 01/10/2018 Echocardiogram: Normal LV size and fxn, mild cLVH, mild TR 1. Acute right limb ischemia referable to Right Iliac/MANGANESE HEATER/DFA/SFA/Popliteal Artery Emboli s/p Open Thrombectomy 2. Persistent Atrial Fibrillation on heparin gtt 3. HTN 4. h/o GIST s/p resection on Gleevec P:1. Continue Eliquis 5 bid given elevated risk score, interaction with Gleevec was reviewed with hematology, coumadin alternative also has interaction potential so will continue with NOAC with monitor bleed risk 2. Continue Toprol XL 50 qd, Norvasc 5 qd 3. PT, d/c planning
--- NOTE | 2018-01-12 15:00 | PN ---
Progress Note (short form) - Note Progress Note: TLast Vital Signs Constitutional: Yes: No Distress, Calm Neck: Yes: Supple Respiratory: Yes: Regular, CTA Bilaterally Gastrointestinal: Yes: Normal Bowel Sounds, Soft Cardiovascular: Yes: Pulse Irregular Heart Sounds: Yes: S1, S2 Murmur: Yes: Systolic Murmur, Grade Temp Pulse Resp BP Pulse Ox 98.2 F 66 14 154/78 97 01/12/18 08:15 01/12/18 08:15 01/12/18 09:00 01/12/18 08:15 01/12/18 09:00 CBC, BMP 01/12/18 06:15 01/10/18 05:30 Current Medications Generic Name Dose Route Start Last Admin Trade Name Freq PRN Reason Stop Dose Admin Amlodipine Besylate 5 mg 01/11/18 10:00 01/12/18 09:11 Norvasc - PO 5 mg DAILY [facility] Administration Apixaban 5 mg 01/10/18 15:45 01/12/18 09:11 Eliquis - PO 5 mg BID [facility] Administration Brimonidine Tartrate 1 drop 01/10/18 22:00 01/12/18 09:12 Alphagan 0.2% - OD 1 drop BID [facility] Administration Dorzolamide HCl 1 drop 01/10/18 22:00 01/12/18 09:13 Trusopt 2% OD 1 drop BID [facility] Administration Imatinib Mesylate 400 mg 01/11/18 23:14 Gleevec (Restricted To Oncology) - PO DAILY [facility] Latanoprost 1 drop 01/10/18 22:00 01/11/18 22:28 Xalatan 0.005% Eye Drops - OU 1 drop HS [facility] Administration Metoprolol Succinate 50 mg 01/11/18 10:00 01/12/18 09:11 Toprol Xl - PO 50 mg DAILY [facility] Administration Mupirocin 1 applic 01/10/18 22:00 01/12/18 09:13 Bactroban Ointment (For Decolonization) - NS 01/14/18 21:59 Not Given BID [facility] Timolol Maleate 1 drop 01/10/18 22:00 01/12/18 09:13 Timoptic 0.5% OD 1 drop BID [facility] Administration TKI interaction with eliquis discussed presently on gleevac 400mg---to be continued close monitoring. h/o GIST--s/p resection. CT a/p shows no recurrence.. CT chest negative PT eval d/c planning in progress
[2018-01-12] MEDS: LATANOPROST 0.005% OPHTH SOLN 2.5ML BOTTLE OU SCH (22:20)
[2018-01-13 09:03] LABS: HEMATOCRIT 33.8 % (32.4-45.2); HEMOGLOBIN 11.1 GM/dL (10.7-15.3); MCH 28.4 pg (25.7-33.7); MCHC 32.9 g/dl (32.0-36.0); MEAN CELL VOLUME 86.5 fl (80-96); MEAN PLT VOLUME 8.5 fl (7.5-11.1); PLATELET COUNT 225 K/MM3 (134-434); RDW 14.9 % (11.6-15.6); WHITE BLOOD COUNT 8.3 K/mm3 (4.0-10.0)
--- NOTE | 2018-01-13 09:40 | PN ---
Progress Note, Physician History of Present Illness: Right lower extremity discomfort resolved, rate-controlled afib persists. Chest CT shows no metastatic disease of GIST. - Current Medication List Current Medications: Active Medications Amlodipine Besylate (Norvasc -) 5 mg PO DAILY [facility] Last Admin: 01/12/18 09:11 Dose: 5 mg Apixaban (Eliquis -) 5 mg PO BID [facility] Last Admin: 01/12/18 22:17 Dose: 5 mg Brimonidine Tartrate (Alphagan 0.2% -) 1 drop OD BID [facility] Last Admin: 01/12/18 22:18 Dose: 1 drop Dorzolamide HCl (Trusopt 2%) 1 drop OD BID [facility] Last Admin: 01/12/18 22:19 Dose: 1 drop Imatinib Mesylate (Gleevec (Restricted To Oncology) -) 400 mg PO DAILY [facility] Latanoprost (Xalatan 0.005% Eye Drops -) 1 drop OU HS [facility] Last Admin: 01/12/18 22:20 Dose: 1 drop Metoprolol Succinate (Toprol Xl -) 50 mg PO DAILY [facility] Last Admin: 01/12/18 09:11 Dose: 50 mg Mupirocin (Bactroban Ointment (For Decolonization) -) 1 applic NS BID [facility] Stop: 01/14/18 21:59 Last Admin: 01/12/18 22:17 Dose: Not Given Timolol Maleate (Timoptic 0.5%) 1 drop OD BID [facility] Last Admin: 01/12/18 22:24 Dose: 1 drop - Objective Vital Signs: Vital Signs Temperature 97.8 F 01/12/18 21:00 Pulse Rate 68 01/12/18 21:00 Respiratory Rate 20 01/12/18 21:00 Blood Pressure 164/86 01/12/18 21:00 O2 Sat by Pulse Oximetry (%) 99 01/12/18 21:00 Constitutional: Yes: No Distress, Calm, Thin Neck: Yes: Supple Cardiovascular: Yes: Pulse Irregular Respiratory: Yes: Regular, Diminished Gastrointestinal: Yes: Normal Bowel Sounds, Soft Edema: No Labs: CBC, BMP 01/12/18 06:15 01/10/18 05:30 INR, PTT INR 1.17 (0.82-1.09) H 01/08/18 12:50 Problem List - Problems (1) Persistent atrial fibrillation Code(s): I48.1 - PERSISTENT ATRIAL FIBRILLATION (2) Hypertensive cardiomyopathy Code(s): I11.9 - HYPERTENSIVE HEART DISEASE WITHOUT HEART FAILURE; I43 - CARDIOMYOPATHY IN DISEASES CLASSIFIED ELSEWHERE Qualifiers: Heart failure presence: without heart failure Qualified Code(s): I11.9 - Hypertensive heart disease without heart failure; I43 - Cardiomyopathy in diseases classified elsewhere (3) Embolus and thrombosis of iliac artery Code(s): I74.5 - EMBOLISM AND THROMBOSIS OF ILIAC ARTERY (4) Peripheral vascular disease Code(s): I73.9 - PERIPHERAL VASCULAR DISEASE, UNSPECIFIED (5) Thrombosis of common femoral artery Code(s): I74.3 - EMBOLISM AND THROMBOSIS OF ARTERIES OF THE LOWER EXTREMITIES Assessment/Plan 01/10/2018 Echocardiogram: Normal LV size and fxn, mild cLVH, mild TR 1. Acute right limb ischemia referable to Right Iliac/VIRTUALIZATION ENGINEER/DFA/SFA/Popliteal Artery Emboli s/p Open Thrombectomy 2. Persistent Atrial Fibrillation on Eliquis 3. HTN 4. h/o GIST s/p resection w/o recurrence on Gleevec P:1. Continue Eliquis 5 bid given elevated risk score, interaction with Gleevec was reviewed with hematology, coumadin alternative also has interaction potential so will continue with NOAC with monitor bleed risk 2. Continue Toprol XL 50 qd, Norvasc 5 qd 3. PT in progress, d/c planning with f/u in cardiology office
--- NOTE | 2018-01-13 10:21 | PATH ---
Surgical Pathology Report Patient Name: GARLAND JOSHUA [facility]. Rec. #: [id number] /Age/Gender: 1930 (Age: 87) / F Account: [id number] Location: 4 W TELEMETRY U Taken: 01/09/2018 Received: 01/10/2018 Reported: 01/13/2018 Physicians: Wilfredo Riggins Specimen(s) Received CLOT FROM RIGHT LOWER EXTREMITY Clinical History Right lower extremity ischemia Final Diagnosis CLOT FROM RIGHT LOWER EXTREMITY, REMOVAL: BLOOD CLOT, RECENT, WITH ATHEROSCLEROTIC PLAQUE. Electronically Signed Esdras King M.D. Gross Description Received in formalin labeled "clot from right lower extremity" is an aggregate of white and focally calcified soft tissue measuring 1.3 cm admixed with blood clots which measures in aggregate 3 x 3 x 0.7 cm. The specimen is entirely submitted after decalcification. MAUREEN/01/10/2018 neri/01/10/2018
[2018-01-13] MEDS: APIXABAN 5 MG TABLET PO SCH (10:50)
[2018-01-13] MEDS: amLODIPine BESYLATE 5 MG TABLET (FP) PO SCH (10:50)
[2018-01-13] MEDS: DORZOLAMIDE 2% HCL OPHTHALMIC SOLUTION 10 ML BOTTLE OD SCH (10:52)
[2018-01-13] MEDS: TIMOLOL 0.5% OPHTHALMIC SOL 5 ML BOTTLE OD SCH (10:52)
[2018-01-13] MEDS: BRIMONIDINE TARTRATE 0.2% OPHTHALMIC 5 ML BOTTLE OD SCH (10:53)
--- NOTE | 2018-01-13 12:26 | DS ---
Physical Examination Vital Signs: Vital Signs Temperature 97.8 F 01/12/18 21:00 Pulse Rate 68 01/12/18 21:00 Respiratory Rate 20 01/12/18 21:00 Blood Pressure 164/86 01/12/18 21:00 O2 Sat by Pulse Oximetry (%) 99 01/12/18 21:00 No c/o chest pain, SOB or palpitation, RT LE has improved Elderly F not in distress HEENT: Mm moist, no anemia PERRLA, EOMI NECK: No JVD No Bruit CHEST: CTA B/L CVS; S1S2 Irr SM in AA ABD: Obese non tender Bs + EXT: Rt LE s/p revascularisation surgery for Iliac A thrombosis Pulses + OBSTETRICS SCRUB NURSE:AOx3 Non focal Labs: CBC, BMP 01/13/18 06:00 01/10/18 05:30 Discharge Summary Reason For Visit: PERIPHERAL VASCULAR DISEASE Current Active Problems Embolus and thrombosis of iliac artery (Acute) Hypertensive cardiomyopathy (Acute) Hypokalemia (Acute) Peripheral vascular disease (Acute) Persistent atrial fibrillation (Acute) Thrombosis of common femoral artery (Acute) Procedures: Principal: Rt Lowe Extermity Iliac V and CFV open thrombectomy Hospital Course: 87 yo female w/ pmhx of GIST, HTN, HLD, arrhythmia, and gout who presented to her PCP on 01/08 with a 5 day of pain in her right leg. Daughter described that her mother's right leg was getting cooler and more painful to the point where she was unable to walk on the leg at all. Pt's PCP sent her to [facility] ED and she was seen by vascular service. CTA in ED showed embolus in ilac , RATE SUPERVISOR, DFA, SFA, Popliteal artery. On exam, her right lower ext ischemia, cool, no palpable pulses, Left lower ext pink - palpable PT pulse, and motor and sensory intact in RLE. She was placed on a heparin gtt and on 01/09 underwent open thrombectomy right iliac, RATE SUPERVISOR, DFA, SFA, Popliteal artery, with right lower ext angiogram. VSS. LAbs remarkable for K 3.1, repleted with PO K. On exam, rt leg is warm, pink, pulses not palpable, but dopplerable PT and popiteal pulses. DP not dopplerable. Rt LE Vascularity improved on Gleevac 400 mg for GIST and Apaxiban 5 mg BID. Condition: Stable - Instructions Diet, Activity, Other Instructions: as advised Referrals: William Valladares MD [Primary Care Provider] - 2 Weeks Enzo Diamond MD [Staff Physician] - 1 Week Joel Champagne MD [Staff Physician] - 2 Weeks Wilfredo Riggins MD [Non Staff, Medical] - 1 Week Disposition: VNS/HOME HEALTH CARE - Home Medications Comprehensive Discharge Medication List: Ambulatory Orders Amlodipine Besylate [Norvasc -] 5 mg PO DAILY tablet 01/13/18 Apixaban [Eliquis -] 5 mg PO BID 14 Days #30 tablet MDD 2 tabs 01/13/18 Dorzolamide HCl [Trusopt 2% -] 1 drop OD BID drops 01/13/18 Imatinib Mesylate [Gleevec (Nf) -] 400 mg PO DAILY tablet 01/13/18 Metoprolol Succinate [Toprol XL -] 50 mg PO DAILY tab.sr.24h 01/13/18 Timolol 0.5% [Timoptic 0.5%] 1 drop OD BID drops 01/13/18 Tylenol 650 mg PRN Q 6 hrly for pain
[2018-01-13 20:08] VITALS: BP 134/75; PULSE 81; TEMP 98.8
== END 2018-01-13 19:37 | disposition home health service (06) | DRG 271 ==
LOC: JER 11:40 → JERBED 13:42 → J4S 20:22 → JICU 01-09 15:18 → J4W 01-11 00:01 → JICU 01-11 00:44 → J4W 01-11 01:21
PROVIDERS: ADMIT Internal Medicine; ATTEND Internal Medicine
PROC: 04CK0ZZ Extirpation of Matter from Right Femoral Artery, Open Approach (ICD-10-PCS; 2018-01-09)
PROC: B40DYZZ Plain Radiography of Aorta and Bilateral Lower Extremity Arteries using Other Contrast (ICD-10-PCS; 2018-01-09)
PROC: 04CC0ZZ Extirpation of Matter from Right Common Iliac Artery, Open Approach (ICD-10-PCS; principal; 2018-01-09 09:00)
PROC: 04CM0Z6 (ICD-10-PCS; 2018-01-09 09:00)
DX: I74.3 Embolism and thrombosis of arteries of the lower extremities (principal); C49.A0 Gastrointestinal stromal tumor, unspecified site; I48.1 Persistent atrial fibrillation; E87.6 Hypokalemia; E78.5 Hyperlipidemia, unspecified; I11.9 Hypertensive heart disease without heart failure
CPT/HCPCS: 36415; 71045-TC-FY; 71250-TC; 75635-TC; 76000-TC-FY; 80048; 80053; 81003; 81015; 83605; 83735; 84443; 85025; 85027; 85610; 85730; 86850; 86900; 86901; 87086; 88304-TC; 93005; 93010; 93306-TC; 93926-TC; 93971-TC; 94760; 97116-GP; 97162-GP; 99285-25; J1644; J7030

== ENCOUNTER 2018-03-30 11:00 | Inpatient (IN) | payer OTHER, MEDICARE ==
--- NOTE | 2018-03-30 11:16 | PDOC ---
History of Present Illness - General History Source: Patient Exam Limitations: No Limitations <Francisca Field - Last Filed: 03/30/18 16:38> - History of Present Illness Initial Comments: 03/30/18 12:23 The patient is an 87 year old female with past medical history of GIST, hypertension, atrial fibrillation (on Eliquis), hyperlipidemia, and gout who was brought into the ED via EMS from home for shortness of breath that began yesterday. As per family members, they noticed the patient becoming progressively short of breath with a dry cough. The patient is unable to provide much more history but states her lower extremities are usually swollen and denies any new changes. She denies any associated chest pain, palpitations, fevers or chills. Allergies: Penicillins PCP: Dr. Valladares <Cleopatra Handy - Last Filed: 03/30/18 17:21> - General Stated Complaint: SOB Time Seen by Provider: 03/30/18 11:16 Past History - Past Medical History Anemia: Yes Asthma: No Cancer: No Cardiac Disorders: Yes CVA: No COPD: No CHF: No Dementia: No Diabetes: No GI Disorders: Yes (GIST) Disorders: No HTN: Yes Hypercholesterolemia: Yes Liver Disease: No Seizures: No Thyroid Disease: No - Surgical History Abdominal Surgery: Yes Appendectomy: No Cardiac Surgery: No Cholecystectomy: No Lung Surgery: No Neurologic Surgery: No Orthopedic Surgery: No - Suicide/Smoking/Psychosocial Hx Smoking History: Never smoked Have you smoked in the past 12 months: No Hx Alcohol Use: No Drug/Substance Use Hx: No Substance Use Type: None Hx Substance Use Treatment: No <Francisca Field - Last Filed: 03/30/18 16:38> <Cleopatra Handy - Last Filed: 03/30/18 17:21> - Past Medical History Allergies/Adverse Reactions: Allergies Allergy/AdvReac Type Severity Reaction Status Date / Time Penicillins Allergy Verified 03/30/18 11:36 grapes Allergy Uncoded 03/30/18 11:36 Home Medications: Ambulatory Orders Amlodipine Besylate 5 mg PO DAILY 01/03/18 Brimonidine Tartrate/Timolol [Combigan Eye Drops] 1 drop OD BID 01/08/18 Dorzolamide HCl [Trusopt 2%] 1 drop OD BID 01/08/18 Latanoprost 0.005% Eye Drops [Xalatan 0.005% Eye Drops -] 1 drop OU HS 01/08/18 Apixaban [Eliquis -] 5 mg PO BID 14 Days #30 tablet MDD 2 tabs 01/13/18 Metoprolol Succinate [Toprol XL -] 50 mg PO DAILY tab.sr.24h 01/13/18 Timolol 0.5% [Timoptic 0.5%] 1 drop OD BID drops 01/13/18 Review of Systems - Review of Systems Able to Perform ROS?: Yes Comments:: 03/30/18 12:36 GENERAL/CONSTITUTIONAL: No fever or chills. No weakness. HEAD, EYES, EARS, NOSE AND THROAT: No change in vision. No ear pain or discharge. No sore throat. CARDIOVASCULAR: (+) Shortness of breath, lower extremity swelling. No chest pain. RESPIRATORY: No cough, wheezing, or hemoptysis. GASTROINTESTINAL: No nausea, vomiting, diarrhea or constipation. GENITOURINARY: No dysuria, frequency, or change in urination. MUSCULOSKELETAL: No joint or muscle swelling or pain. No neck or back pain. SKIN: No rash NEUROLOGIC: No headache, vertigo, loss of consciousness, or change in strength/ sensation. ENDOCRINE: No increased thirst. No abnormal weight change. HEMATOLOGIC/LYMPHATIC: No anemia, easy bleeding, or history of blood clots. ALLERGIC/IMMUNOLOGIC: No hives or skin allergy. All Other Systems: Reviewed and Negative <Cleopatra Handy - Last Filed: 03/30/18 17:21> *Physical Exam - Vital Signs Last Vital Signs Temp Pulse Resp BP Pulse Ox 99.2 F 67 18 143/85 91 L 03/30/18 12:01 03/30/18 11:31 03/30/18 11:31 03/30/18 11:31 03/30/18 11:31 - Physical Exam Comments: 03/30/18 12:37 GENERAL: Awake, alert, and fully oriented, in no acute distress HEAD: No signs of trauma EYES: PERRLA, EOMI, sclera anicteric, conjunctiva clear ENT: Auricles normal inspection, hearing grossly normal, nares patent, oropharynx clear without exudates. Moist mucosa NECK: Normal ROM, supple, no lymphadenopathy, JVD, or masses LUNGS: (+) decreased breath sounds bilaterally. No wheezes, and no crackles HEART: (+) Irregularly irregular. Normal S1 and S2, no murmurs, rubs or gallops ABDOMEN: Soft, nontender, normoactive bowel sounds. No guarding, no rebound. No masses EXTREMITIES: (+) Bilateral 3+ pitting edema to the knees. Normal range of motion. No clubbing or cyanosis. No cords, erythema, or tenderness NEUROLOGICAL: Cranial nerves II through XII grossly intact. Normal speech. SKIN: (+)Bilateral erythematous lesions on breasts. Warm, Dry, normal turgor. <Cleopatra Handy - Last Filed: 03/30/18 17:21> ED Treatment Course - LABORATORY CBC & Chemistry Diagram: 03/30/18 12:18 03/30/18 12:18 <Francisca Field - Last Filed: 03/30/18 16:38> - LABORATORY CBC & Chemistry Diagram: 03/30/18 12:18 03/30/18 12:18 - RADIOLOGY Radiograph Interpretation: 03/30/18 14:12 Chest X-ray as reviewed by Dr. Gaona reports pleural and pulmonary changes compared to prior study in December. 03/30/18 17:15 Chest CTA as reviewed by Dr. Stevenson reports no definite evidence of PE, but development of interstitial pulmonary vascular congestion. <Cleopatra Handy - Last Filed: 03/30/18 17:21> Medical Decision Making - Medical Decision Making 03/30/18 12:04 Rectal temp = 99.5 EKG: Afib rate of 66 bpm, axis nml, no st elevations or depressions, t wave inversion I, aVL CXR: Cardiomegaly, pleural effusions bilaterally 03/30/18 13:45 Laboratory Tests 03/30/18 03/30/18 03/30/18 12:18 12:18 12:18 WBC 6.7 Hgb 12.6 Hct 39.7 D Plt Count 198 INR 1.89 H Sodium 148 H Potassium 3.7 Chloride 114 H Carbon Dioxide 26 BUN 13 Creatinine 0.9 Random Glucose 92 Creatine Kinase 39 Troponin I 0.15 H B-Natriuretic Peptide 31444.83 H Pt appears to have heart failure Trop is slightly elevated ? PE I think this is very unlikely given she is compliant with Lasix Will do CTA to eval anyhow Case reviewed with Dr. Valladares Will admit to tele Will call cardiology Will give Lasix after CTA Clinical Impression: CHF, initial presentation 03/30/18 16:38 CT demonstrates vascular congestion, pleural effusion Possible infiltrate or atalectasis??? Pt has no wbc elevation, Pt has indeterminant trop and BNP elevation Will give Lasix Pending cards consult <Francisca Field - Last Filed: 03/30/18 16:38> - Medical Decision Making 03/30/18 13:00 Phone call [address] to Dr. Valladares. Case was discussed. 03/30/18 14:15 Overhead page sent to Dr. John. Awaiting call back. 03/30/18 14:25 Phone call paged to Dr. John office. Awaiting call back. <Cleopatra Handy - Last Filed: 03/30/18 17:21> *DC/Admit/Observation/Transfer - Discharge Dispostion Decision to Admit order: Yes <Francisca Field - Last Filed: 03/30/18 16:38> - Attestations Scribe Attestion: 03/30/18 12:49 Documentation prepared by Cleopatra Handy, acting as medical housekeeper for Francisca Field MD. <Cleopatra Handy - Last Filed: 03/30/18 17:21> Diagnosis at time of Disposition: Hypoxia, Pleural effusion - Discharge Dispostion Condition at time of disposition: Stable
[2018-03-30 11:35] VITALS: BMI 25.2
[2018-03-30 12:47] LABS: BASO % 1.3 % (0-2.0); EOS % 6.4 % (0-4.5); HEMATOCRIT 39.7 % (32.4-45.2); HEMOGLOBIN 12.6 GM/dL (10.7-15.3); LYMPH % 29.3 % (8-40); MCH 27.1 pg (25.7-33.7); MCHC 31.7 g/dl (32.0-36.0); MEAN CELL VOLUME 85.7 fl (80-96); MEAN PLT VOLUME 8.3 fl (7.5-11.1); MONO % 8.6 % (3.8-10.2); NEUT % 54.4 % (42.8-82.8); PLATELET COUNT 198 K/MM3 (134-434); RBC 4.64 M/mm3 (3.60-5.2); RDW 16.8 % (11.6-15.6); WHITE BLOOD COUNT 6.7 K/mm3 (4.0-10.0)
[2018-03-30 12:51] LABS: INR 1.89 (0.83-1.09); PROTHROMBIN TIME (PATIENT) 21.4 SEC (9.7-13.0)
[2018-03-30 13:02] LABS: ALBUMIN 2.5 g/dl (3.4-5.0); ANION GAP 8 MMOL/L (8-16); BILIRUBIN,TOTAL 0.6 mg/dL (0.2-1.0); BLOOD UREA NITROGEN 13 mg/dL (7-18); CALCIUM 8.8 mg/dL (8.5-10.1); CHLORIDE 114 mmol/L (98-107); CO2 26 mmol/L (21-32); CREATININE 0.9 mg/dL (0.55-1.02); GLUCOSE,RANDOM 92 mg/dL (74-106); POTASSIUM 3.7 mmol/L (3.5-5.1); SGOT/AST 26 U/L (15-37); SGPT/ALT 35 U/L (12-78); SODIUM 148 mmol/L (136-145); TOT PROT 6.2 g/dl (6.4-8.2)
[2018-03-30 13:05] LABS: ALK PHOS 104 U/L (45-117); N-TERMINAL BNP 14076.83 pg/ml (5-450)
--- NOTE | 2018-03-30 15:02 | EKG ---
Test Reason : Blood Pressure : / mmHG Vent. Rate : 066 BPM Atrial Rate : 067 BPM P-R Int : 000 ms QRS Dur : 092 ms QT Int : 454 ms P-R-T Axes : 000 -22 130 degrees QTc Int : 475 ms POOR DATA QUALITY, INTERPRETATION MAY BE ADVERSELY AFFECTED ATRIAL FIBRILLATION ANTEROSEPTAL INFARCT (CITED ON OR BEFORE 15-OCT-2010) T WAVE ABNORMALITY, CONSIDER LATERAL ISCHEMIA ABNORMAL ECG WHEN COMPARED WITH ECG OF 08-JAN-2018 16:46, ST NO LONGER DEPRESSED IN LATERAL LEADS T WAVE INVERSION LESS EVIDENT IN LATERAL LEADS Confirmed by SANTO MARSHALL MD ([id number]) on 03/30/2018 3:01:36 PM Referred By: Confirmed By:SANTO MARSHALL MD
[2018-03-30] MEDS ORDERED: FUROSEMIDE 40 MG/4 ML INJECTABLE VIAL IVPUSH ONE (16:38)
[2018-03-30] MEDS ORDERED: FUROSEMIDE 40 MG/4 ML INJECTABLE VIAL ONE (17:40)
[2018-03-30] MEDS: APIXABAN 5 MG TABLET PO SCH (21:28)
[2018-03-30] MEDS: LATANOPROST 0.005% OPHTH SOLN 2.5ML BOTTLE OU SCH (21:57)
[2018-03-30] MEDS: BRIMONIDINE TARTRATE 0.2% OPHTHALMIC 5 ML BOTTLE OU SCH (21:57)
[2018-03-30] MEDS: DORZOLAMIDE 2% HCL OPHTHALMIC SOLUTION 10 ML BOTTLE OD SCH (22:00)
[2018-03-30] MEDS: TIMOLOL 0.5% OPHTHALMIC SOL 5 ML BOTTLE OU SCH (22:01)
[2018-03-31] MEDS: BRIMONIDINE TARTRATE 0.2% OPHTHALMIC 5 ML BOTTLE OU SCH ×2 (09:46→22:01)
[2018-03-31] MEDS: TIMOLOL 0.5% OPHTHALMIC SOL 5 ML BOTTLE OU SCH ×2 (09:49→22:01)
[2018-03-31] MEDS: APIXABAN 5 MG TABLET PO SCH ×2 (09:49→22:02)
[2018-03-31] MEDS: amLODIPine BESYLATE 5 MG TABLET (FP) PO SCH (09:49)
[2018-03-31] MEDS: DORZOLAMIDE 2% HCL OPHTHALMIC SOLUTION 10 ML BOTTLE OD SCH ×2 (09:50→22:01)
--- NOTE | 2018-03-31 10:05 | HP ---
DATE OF ADMISSION: 03/30/2018 This is an 87-year-old female known to me for many years, who came to the emergency room yesterday with complaints of short of breath, brought by ambulance. She was diagnosed to have hypertension, CHF, atrial fibrillation, and glaucoma. She was taking her medicines at home. In the emergency room, it was thought that the patient was in CHF, so was admitted. Her x-ray showed pulmonary congestion. PHYSICAL EXAMINATION: General: Today, she is awake, alert, oriented, not in distress. Vital Signs: BP 159/90, pulse 70, respirations 20, temperature 98. HEENT: Unremarkable. Neck: Supple. No JVD. Lungs: Breath sounds diminished on both bases. A few rales present. Heart: S1, S2 normal. No S3 or S4. Abdomen: Soft. Legs: No edema. Neurological: Examination grossly normal. EKG: Atrial fibrillation, poor quality. Chest x-ray consistent with CHF. CT of the chest and thorax reported no evidence of pulmonary embolism. LABORATORY DATA: WBC 6.7, hematocrit 12, platelets 198. Chemistry: Sodium 148, potassium 3.7, chloride 114. Her troponin is borderline high, 0.15. B peptide high, 14,076. IMPRESSION: 1. Congestive heart failure, rule out myocardial infarction. 2. High blood pressure. 3. Atrial fibrillation. PLAN: Cardiac monitoring; cardiology consult, Dr. John; repeat her blood work; continue her present medication. Will follow. WENDI SIDDIQUI M.D. [id number]
[2018-03-31] MEDS: HEPARIN NA (PORCINE) 5,000 UNITS/ML 1ML VIAL SQ SCH ×3 (10:21→22:19)
--- NOTE | 2018-03-31 10:34 | CON.CARD ---
Consult Consult Specialty:: Cardiology Referred by:: William Valladares MD Reason for Consultation:: CHF - History of Present Illness Chief Complaint: Dyspnea and LE edema History of Present Illness: Chief Complaint: Dyspnea History of Present Illness: 87 year old female GIST, HTN, HLD, PAF on Eliquis, gout, PAD with h/o right acute limb ischemia post open thrombectomy presented for shortness of breath that began yesterday. As per family members, they noticed the patient becoming progressively short of breath with a dry cough since improved with initiation of IV diuresis. The patient is unable to provide much more history but states her lower extremities are usually swollen and denies any new changes. She denies any associated chest pain, palpitations, fevers or chills, palpitations, near or true syncope, orthopnea or PND. Allergies: Penicillins PCP: Dr. Valladares - History Source History Provided By: Medical Record Limitations to Obtaining History: Poor Historian - Past Medical History Cardio/Vascular: Yes: AFIB, HTN, Hyperlipdemia, Other (arrthymmia, PVD) Gastrointestinal: Yes: Other (GIST) Renal/: Yes: UTI ...: No Rheumatology: Yes: Gout - Alcohol/Substance Use Hx Alcohol Use: No - Smoking History Smoking history: Never smoked Have you smoked in the past 12 months: No - Social History Usual Living Arrangement: With Child ADL: Independent History of Recent Travel: No Home Medications - Allergies Allergies/Adverse Reactions: Allergies Allergy/AdvReac Type Severity Reaction Status Date / Time Penicillins Allergy Verified 03/30/18 11:36 grapes Allergy Uncoded 03/30/18 11:36 - Home Medications Home Medications: Ambulatory Orders Amlodipine Besylate 5 mg PO DAILY 01/03/18 Brimonidine Tartrate/Timolol [Combigan Eye Drops] 1 drop OD BID 01/08/18 Dorzolamide HCl [Trusopt 2%] 1 drop OD BID 01/08/18 Latanoprost 0.005% Eye Drops [Xalatan 0.005% Eye Drops -] 1 drop OU HS 01/08/18 Apixaban [Eliquis -] 5 mg PO BID 14 Days #30 tablet MDD 2 tabs 01/13/18 Metoprolol Succinate [Toprol XL -] 50 mg PO DAILY tab.sr.24h 01/13/18 Timolol 0.5% [Timoptic 0.5%] 1 drop OD BID drops 01/13/18 Review of Systems - Review of Systems Cardiovascular: reports: Edema, Shortness of Breath Respiratory: reports: Cough Vital Signs: Vital Signs Temperature 98.4 F 03/31/18 06:18 Pulse Rate 61 03/31/18 06:18 Respiratory Rate 16 03/31/18 08:43 Blood Pressure 159/90 03/31/18 06:18 O2 Sat by Pulse Oximetry (%) 92 L 03/31/18 08:43 Constitutional: Yes: No Distress, Calm, Thin Neck: Yes: Supple Respiratory: Yes: Regular, Diminished, On Nasal O2 Gastrointestinal: Yes: Normal Bowel Sounds, Soft Cardiovascular: Yes: Pulse Irregular JVD: No Carotid Bruit: No Heart Sounds: Yes: S1, S2 Murmur: Yes: Systolic Murmur, Grade 1 Edema: Yes Edema: LLE: 1+, RLE: 1+ - Other Data Labs, Other Data: CBC, BMP 03/30/18 12:18 03/30/18 12:18 INR, PTT INR 1.89 (0.83-1.09) H 03/30/18 12:18 Troponin, BNP 03/30/18 03/30/18 12:18 12:18 Troponin I 0.15 H B-Natriuretic Peptide 12060.83 H Cancelled Troponin, BNP 03/30/18 03/30/18 12:18 12:18 Troponin I 0.15 H B-Natriuretic Peptide 50513.83 H Cancelled Afib @ 66 IVCD Ejection Fraction %: LVEF > or = 40 % Imaging - Results Cat Scan: Report Reviewed (Chest CT 03/30/2018 Vascular congestion with small- mod right effusion and small left effusion) Problem List - Problems (1) Acute on chronic diastolic (congestive) heart failure Code(s): I50.33 - ACUTE ON CHRONIC DIASTOLIC (CONGESTIVE) HEART FAILURE (2) Chronic anticoagulation Code(s): Z79.01 - QUALITY INTERNSHIP (CURRENT) USE OF ANTICOAGULANTS (3) Pleural effusion Code(s): J90 - PLEURAL EFFUSION, NOT ELSEWHERE CLASSIFIED (4) Hypertensive cardiomyopathy Code(s): I11.9 - HYPERTENSIVE HEART DISEASE WITHOUT HEART FAILURE; I43 - CARDIOMYOPATHY IN DISEASES CLASSIFIED ELSEWHERE Qualifiers: Heart failure presence: with heart failure Qualified Code(s): I11.0 - Hypertensive heart disease with heart failure; I43 - Cardiomyopathy in diseases classified elsewhere (5) Peripheral vascular disease Code(s): I73.9 - PERIPHERAL VASCULAR DISEASE, UNSPECIFIED (6) Persistent atrial fibrillation Code(s): I48.1 - PERSISTENT ATRIAL FIBRILLATION (7) Subendocardial ischemia Code(s): I24.8 - OTHER FORMS OF ACUTE ISCHEMIC HEART DISEASE Assessment/Plan 01/10/2018 Echocardiogram: Normal LV size and fxn, mild cLVH, mild TR 1. Acute on chronic diastolic failure with pleural effusions R>L and subendocardial ischemia 2. H/o acute right limb ischemia referable to Right Iliac/TEACHER KINDERGARTEN/DFA/SFA/Popliteal Artery Emboli s/p Open Thrombectomy 3. Persistent Atrial Fibrillation on Eliquis 4. HTN 5. h/o GIST s/p resection w/o recurrence on Gleevec P:1. Continue IV diuresis with monitor diuretic response, renal function and electrolytes, trend trops to document peak, check fasting lipid panel 2. Continue Eliquis 5 bid given elevated risk score, interaction with Gleevec was reviewed with hematology, coumadin alternative also has interaction potential so will continue with NOAC with monitor bleed risk 3. Continue Toprol XL 50 qd, Norvasc 5 qd 4. PT, mobilize 5. Thank you for consultative opportunity
[2018-03-31] MEDS: FUROSEMIDE 40 MG/4 ML INJECTABLE VIAL IVPUSH SCH (11:53)
[2018-03-31] MEDS ORDERED: PT OWN MED DRAWER 7, Y5N ONE (21:55)
[2018-03-31] MEDS: LATANOPROST 0.005% OPHTH SOLN 2.5ML BOTTLE OU SCH (22:01)
[2018-04-01 07:29] LABS: ALBUMIN 2.2 g/dl (3.4-5.0); ANION GAP 8 MMOL/L (8-16); BLOOD UREA NITROGEN 9 mg/dL (7-18); CALCIUM 8.5 mg/dL (8.5-10.1); CHLORIDE 111 mmol/L (98-107); CO2 28 mmol/L (21-32); GLUCOSE,RANDOM 73 mg/dL (74-106); SODIUM 147 mmol/L (136-145)
[2018-04-01 07:34] LABS: ALK PHOS 91 U/L (45-117); BILIRUBIN,TOTAL 0.5 mg/dL (0.2-1.0); CHOLESTEROL 117 mg/dL (50-200); CREATININE 0.7 mg/dL (0.55-1.02); HDL CHOLESTEROL 38 mg/dL (40-60); SGOT/AST 17 U/L (15-37); SGPT/ALT 25 U/L (12-78); TOT PROT 5.6 g/dl (6.4-8.2); TRIGLYCERIDES 87 mg/dL (35-160)
[2018-04-01] MEDS: APIXABAN 5 MG TABLET PO SCH ×2 (09:34→21:14)
[2018-04-01] MEDS: DORZOLAMIDE 2% HCL OPHTHALMIC SOLUTION 10 ML BOTTLE OD SCH ×2 (09:34→21:14)
[2018-04-01] MEDS: TIMOLOL 0.5% OPHTHALMIC SOL 5 ML BOTTLE OU SCH ×2 (09:34→21:14)
[2018-04-01] MEDS: amLODIPine BESYLATE 5 MG TABLET (FP) PO SCH (09:34)
[2018-04-01] MEDS: FUROSEMIDE 40 MG/4 ML INJECTABLE VIAL IVPUSH SCH (09:34)
[2018-04-01] MEDS: BRIMONIDINE TARTRATE 0.2% OPHTHALMIC 5 ML BOTTLE OU SCH ×2 (09:34→21:14)
[2018-04-01] MEDS: HEPARIN NA (PORCINE) 5,000 UNITS/ML 1ML VIAL SQ SCH (09:35)
--- NOTE | 2018-04-01 09:57 | PN ---
Progress Note, Physician Chief Complaint: Feels better History of Present Illness: Admitted with CHF bob Carmona cardiology consult appreciated - Current Medication List Current Medications: Active Medications Amlodipine Besylate (Norvasc -) 5 mg PO DAILY [facility] Last Admin: 04/01/18 09:34 Dose: 5 mg Apixaban (Eliquis -) 5 mg PO BID [facility] Last Admin: 04/01/18 09:34 Dose: 5 mg Brimonidine Tartrate (Alphagan 0.2% -) 1 drop OU BID [facility] Last Admin: 04/01/18 09:34 Dose: 1 drop Dorzolamide HCl (Trusopt 2%) 1 drop OD BID [facility] Last Admin: 04/01/18 09:34 Dose: 1 drop Furosemide (Lasix Injection -) 40 mg IVPUSH DAILY [facility] Last Admin: 04/01/18 09:34 Dose: 40 mg Heparin Sodium (Porcine) (Heparin -) 5,000 unit SQ BID [facility] Last Admin: 04/01/18 09:35 Dose: Not Given Latanoprost (Xalatan 0.005% Eye Drops -) 1 drop OU HS [facility] Last Admin: 03/31/18 22:01 Dose: 1 drop Metoprolol Succinate (Toprol Xl -) 50 mg PO DAILY [facility] Last Admin: 04/01/18 09:34 Dose: 50 mg Timolol Maleate (Timoptic 0.5%) 1 drop OU BID [facility] Last Admin: 04/01/18 09:34 Dose: 1 drop - Objective Vital Signs: Vital Signs Temperature 98.2 F 04/01/18 09:06 Pulse Rate 72 04/01/18 09:06 Respiratory Rate 18 04/01/18 09:06 Blood Pressure 155/92 04/01/18 09:06 O2 Sat by Pulse Oximetry (%) 95 03/31/18 21:00 Constitutional: Yes: No Distress Eyes: Yes: WNL HENT: Yes: WNL Neck: Yes: WNL Cardiovascular: Yes: WNL Respiratory: Yes: WNL Gastrointestinal: Yes: Normal Bowel Sounds ...Rectal Exam: Yes: Deferred Genitourinary: Yes: WNL Breast(s): Yes: WNL Musculoskeletal: Yes: Muscle Weakness Extremities: Yes: WNL Neurological: Yes: Alert Psychiatric: Yes: Alert Labs: CBC, BMP 03/30/18 12:18 04/01/18 06:05 INR, PTT INR 1.89 (0.83-1.09) H 03/30/18 12:18 Assessment/Plan KCL po ordered
[2018-04-01] MEDS: POTASSIUM CHLORIDE ORAL LIQUID 20 MEQ/15 ML PO SCH ×3 (10:23→21:14)
--- NOTE | 2018-04-01 10:42 | PN ---
Progress Note, Physician History of Present Illness: Dyspnea and cough since improved with diuresis. She denies any associated chest pain, palpitations, fevers or chills, palpitations, near or true syncope, orthopnea, LE edema or PND. Allergies: Penicillins PCP: Dr. Valladares - Current Medication List Current Medications: Active Medications Amlodipine Besylate (Norvasc -) 5 mg PO DAILY [facility] Last Admin: 04/01/18 09:34 Dose: 5 mg Apixaban (Eliquis -) 5 mg PO BID [facility] Last Admin: 04/01/18 09:34 Dose: 5 mg Brimonidine Tartrate (Alphagan 0.2% -) 1 drop OU BID [facility] Last Admin: 04/01/18 09:34 Dose: 1 drop Dorzolamide HCl (Trusopt 2%) 1 drop OD BID [facility] Last Admin: 04/01/18 09:34 Dose: 1 drop Furosemide (Lasix Injection -) 40 mg IVPUSH DAILY [facility] Last Admin: 04/01/18 09:34 Dose: 40 mg Heparin Sodium (Porcine) (Heparin -) 5,000 unit SQ BID [facility] Last Admin: 04/01/18 09:35 Dose: Not Given Latanoprost (Xalatan 0.005% Eye Drops -) 1 drop OU HS [facility] Last Admin: 03/31/18 22:01 Dose: 1 drop Metoprolol Succinate (Toprol Xl -) 50 mg PO DAILY [facility] Last Admin: 04/01/18 09:34 Dose: 50 mg Potassium Chloride (Potassium Chloride Oral Liquid) 40 meq PO Q6H [facility] Stop: 04/01/18 22:16 Last Admin: 04/01/18 10:23 Dose: 40 meq Timolol Maleate (Timoptic 0.5%) 1 drop OU BID [facility] Last Admin: 04/01/18 09:34 Dose: 1 drop - Objective Vital Signs: Vital Signs Temperature 98.2 F 04/01/18 09:06 Pulse Rate 72 04/01/18 09:06 Respiratory Rate 18 04/01/18 09:06 Blood Pressure 155/92 04/01/18 09:06 O2 Sat by Pulse Oximetry (%) 95 03/31/18 21:00 Constitutional: Yes: No Distress, Calm, Thin Neck: Yes: Supple Cardiovascular: Yes: Pulse Irregular Respiratory: Yes: Regular, Diminished Gastrointestinal: Yes: Normal Bowel Sounds, Soft Edema: No Labs: CBC, BMP 03/30/18 12:18 04/01/18 06:05 INR, PTT INR 1.89 (0.83-1.09) H 03/30/18 12:18 - ....Imaging EKG: Report Reviewed (Tele: NSR) Problem List - Problems (1) Acute on chronic diastolic (congestive) heart failure Code(s): I50.33 - ACUTE ON CHRONIC DIASTOLIC (CONGESTIVE) HEART FAILURE (2) Chronic anticoagulation Code(s): Z79.01 - CUSTODIAL (CURRENT) USE OF ANTICOAGULANTS (3) Pleural effusion Code(s): J90 - PLEURAL EFFUSION, NOT ELSEWHERE CLASSIFIED (4) Hypertensive cardiomyopathy Code(s): I11.9 - HYPERTENSIVE HEART DISEASE WITHOUT HEART FAILURE; I43 - CARDIOMYOPATHY IN DISEASES CLASSIFIED ELSEWHERE Qualifiers: Heart failure presence: with heart failure Qualified Code(s): I11.0 - Hypertensive heart disease with heart failure; I43 - Cardiomyopathy in diseases classified elsewhere (5) Peripheral vascular disease Code(s): I73.9 - PERIPHERAL VASCULAR DISEASE, UNSPECIFIED (6) Persistent atrial fibrillation Code(s): I48.1 - PERSISTENT ATRIAL FIBRILLATION (7) Subendocardial ischemia Code(s): I24.8 - OTHER FORMS OF ACUTE ISCHEMIC HEART DISEASE Assessment/Plan 01/10/2018 Echocardiogram: Normal LV size and fxn, mild cLVH, mild TR 1. Acute on chronic diastolic failure with pleural effusions R>L and subendocardial ischemia 2. H/o acute right limb ischemia referable to Right Iliac/TARIFF COUNSEL/DFA/SFA/Popliteal Artery Emboli s/p Open Thrombectomy 3. Persistent Atrial Fibrillation on Eliquis 4. HTN 5. h/o GIST s/p resection w/o recurrence on Gleevec P:1. Continue IV diuresis with monitor diuretic response, renal function and electrolytes, trops plateaued, replete K 2. Continue Eliquis 5 bid given elevated risk score, interaction with Gleevec was reviewed with hematology, coumadin alternative also has interaction potential so will continue with NOAC with monitor bleed risk, d/c sc heparin 3. Continue Toprol XL 50 qd, Norvasc 5 qd 4. PT, mobilize
[2018-04-01] MEDS ORDERED: PT OWN MED DRAWER 7, Y5N ONE ×2 (20:52→21:11)
[2018-04-01] MEDS: LATANOPROST 0.005% OPHTH SOLN 2.5ML BOTTLE OU SCH (21:14)
[2018-04-02 08:13] LABS: ALBUMIN 2.1 g/dl (3.4-5.0); ALK PHOS 92 U/L (45-117); ANION GAP 6 MMOL/L (8-16); BILIRUBIN,TOTAL 0.5 mg/dL (0.2-1.0); BLOOD UREA NITROGEN 10 mg/dL (7-18); CALCIUM 8.1 mg/dL (8.5-10.1); CHLORIDE 108 mmol/L (98-107); CO2 31 mmol/L (21-32); CREATININE 0.9 mg/dL (0.55-1.02); GLUCOSE,RANDOM 71 mg/dL (74-106); POTASSIUM 3.2 mmol/L (3.5-5.1); SGOT/AST 15 U/L (15-37); SGPT/ALT 22 U/L (12-78); SODIUM 145 mmol/L (136-145); TOT PROT 5.6 g/dl (6.4-8.2)
--- NOTE | 2018-04-02 08:50 | DS ---
Physical Examination Vital Signs: Vital Signs Temperature 98.1 F 04/02/18 06:00 Pulse Rate 63 04/02/18 06:00 Respiratory Rate 20 04/02/18 06:00 Blood Pressure 128/98 04/02/18 06:00 O2 Sat by Pulse Oximetry (%) 96 04/01/18 21:00 Findings/Remarks: Admitted with CHF,treated with IV diuretics,improved Had hypokalemia ,corrected today K is 3.2 Constitutional: Yes: No Distress Eyes: Yes: WNL HENT: Yes: WNL Neck: Yes: WNL Cardiovascular: Yes: WNL Respiratory: Yes: Regular Gastrointestinal: Yes: Normal Bowel Sounds ...Rectal Exam: Yes: Deferred Breast(s): Yes: WNL Musculoskeletal: Yes: Muscle Weakness Extremities: Yes: WNL Edema: No Peripheral Pulses WNL: Yes Neurological: Yes: Alert ...Motor Strength: WNL Psychiatric: Yes: Alert Labs: CBC, BMP 03/30/18 12:18 04/02/18 06:15 Discharge Summary Reason For Visit: CHF, PLEURAL EFFUSION , ELEVATED TROPONIN LEVEL Current Active Problems Acute on chronic diastolic (congestive) heart failure (Acute) Chronic anticoagulation (Acute) Hypoxia (Acute) Pleural effusion (Acute) Subendocardial ischemia (Acute) Condition: Stable - Instructions Referrals: William Valladares MD [Primary Care Provider] - - Home Medications Comprehensive Discharge Medication List: Ambulatory Orders Amlodipine Besylate 5 mg PO DAILY 01/03/18 Brimonidine Tartrate/Timolol [Combigan Eye Drops] 1 drop OD BID 01/08/18 Dorzolamide HCl [Trusopt 2%] 1 drop OD BID 01/08/18 Latanoprost 0.005% Eye Drops [Xalatan 0.005% Eye Drops -] 1 drop OU HS 01/08/18 Apixaban [Eliquis -] 5 mg PO BID 14 Days #30 tablet MDD 2 tabs 01/13/18 Metoprolol Succinate [Toprol XL -] 50 mg PO DAILY tab.sr.24h 01/13/18 Timolol 0.5% [Timoptic 0.5%] 1 drop OD BID drops 01/13/18
[2018-04-02] MEDS ORDERED: PT OWN MED DRAWER 7, Y5N ONE (09:55)
[2018-04-02 09:58] VITALS: BP 157/69; PULSE 81; TEMP 98.4
[2018-04-02] MEDS: amLODIPine BESYLATE 5 MG TABLET (FP) PO SCH (10:55)
[2018-04-02] MEDS: BRIMONIDINE TARTRATE 0.2% OPHTHALMIC 5 ML BOTTLE OU SCH (10:55)
[2018-04-02] MEDS: APIXABAN 5 MG TABLET PO SCH (10:55)
[2018-04-02] MEDS: TIMOLOL 0.5% OPHTHALMIC SOL 5 ML BOTTLE OU SCH (10:55)
[2018-04-02] MEDS: DORZOLAMIDE 2% HCL OPHTHALMIC SOLUTION 10 ML BOTTLE OD SCH (10:56)
[2018-04-02] MEDS: FUROSEMIDE 40 MG/4 ML INJECTABLE VIAL IVPUSH SCH (10:56)
== END 2018-04-02 14:20 | disposition home or self-care (01) | DRG 292 ==
LOC: JER 11:00 → JERBED 12:24 → J4S 20:15
PROVIDERS: ADMIT Internal Medicine; ATTEND Internal Medicine
DX: I11.0 Hypertensive heart disease with heart failure (principal); J90 Pleural effusion, not elsewhere classified; I48.1 Persistent atrial fibrillation; I24.8 Other forms of acute ischemic heart disease; I50.33 Acute on chronic diastolic (congestive) heart failure; Z79.01 Long term (current) use of anticoagulants; E78.5 Hyperlipidemia, unspecified; M10.9 Gout, unspecified; Z88.0 Allergy status to penicillin; I73.9 Peripheral vascular disease, unspecified; I36.1 Nonrheumatic tricuspid (valve) insufficiency; E87.6 Hypokalemia
CPT/HCPCS: 36415; 71045-TC-FY; 71275-TC; 80048; 80053; 80061; 82550; 83605; 83721; 83880; 84484; 85025; 85610; 86850; 86900; 86901; 87040; 93005; 93010; 99283-25; J1644

== ENCOUNTER 2018-08-21 12:41 | Emergency (ER) | payer OTHER, MEDICARE ==
[2018-08-21] MEDS ORDERED: ALTEPLASE 100MG 100 MG IVPB ONE (12:57)
[2018-08-21 13:03] VITALS: BP 0/0; PULSE 0; BMI 25.6
[2018-08-21] MEDS ORDERED: EPINEPHrine 1:10,000 (P-F SYR) 1 MG/10 ML DISP.SYRIN ONE (13:08)
[2018-08-21] MEDS ORDERED: SODIUM BICARBONATE 8.4% - 100 ML ONE (13:09)
--- NOTE | 2018-08-21 13:36 | PDOC ---
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 As per EMS, the patient's daughter notes patient was in her normal state of health this morning until 11:30 when she found the patient unresponsive with eyes rolled back and immediately called 911 and started chest compressions. EMS arrived and administered Atropine x1, epi x3, and intubated her in the field. EMS shocked patient twice but patient remained without a pulse for vfib. - Physicial Exam PE: 08/21/18 13:56 GENERAL: unresponsive HEAD: No signs of trauma EYES: fixed, dilated ENT: intubated LUNGS: b/l BS with bagging HEART: no heart sounds ABDOMEN: Soft, non distended EXTREMITIES: warm, no deformities NEUROLOGICAL: unresponsive SKIN: Warm, Dry, normal turgor, no rashes or lesions noted. - Medical Decision Making 08/21/18 14:02 88yo F with MMP presents to the ED with cardiac arrest. On arrival, pt in Vfib, shocked twice, given amiodarone 300mg With continuous cpr, vfib degraded to PEA Pt given dextrose, calcium, bicarb, mg, epi Persistent PEA Per family member, pt had clot in her R leg that she is on a blood thinner for +dilated RV on bedside sono Given concern for PE, pt was given TPA 50mg CPR was continued to 20 more mins with no ROSC End tidal was btwn 15-22 throughout code Family in the room at the end of the code Time of was called at 1320 <Annabelle Nava - Last Filed: 08/21/18 13:55> - Resident Resident Name: Judit Norman - ED Attending Attestation I have performed the following: I have examined & evaluated the patient, The case was reviewed & discussed with the resident, I agree w/resident's findings & plan - Medical Decision Making 08/21/18 1:52pm Call placed to Dr. Kye Tidwell, early childhood education worker doctor for patient's PCP Dr. William Valladares to update on patient's ; resident (Dr. Judit Norman) discussed with physician and accepted. 2:12pm Call placed to [place], resident Dr. Judit Norman discussed case. Case denied by ME. Documentation prepared by Joseph Bermudez, acting as medical assisting instructor for Annabelle Nava MD. <Joseph Bermudez - Last Filed: 08/21/18 14:23>
--- NOTE | 2018-08-21 14:29 | PDOC ---
History of Present Illness - General Chief Complaint: Cardiac Arrest Stated Complaint: CARDIAC ARREST Time Seen by Provider: 08/21/18 13:29 History Source: EMS, Family Exam Limitations: Intubated, Unresponsive - History of Present Illness Initial Comments: 88YOF with h/o GIST, hypertension, atrial fibrillation (on Eliquis), hyperlipidemia, and gout; BIBEMS from home where family notes they heard her call out to them, came to find her, and found her unresponsive. EMS palpated pulses initially, but soon she became bradycardic, first to the 40s then the 50s. They gave atropine but subsequently lost pulses and started ACLS. They administered CPR and donned the Keanu device. They gave a total of 3 rounds of epi. They had brief periods of Vtach and Vfib on the monitor and gave two shocks. They did not obtain ROSC and she arrives to the ED in continued cardiopulmonary arrest. Past History - Past Medical History Allergies/Adverse Reactions: Allergies Allergy/AdvReac Type Severity Reaction Status Date / Time Penicillins Allergy Verified 03/30/18 11:36 grapes Allergy Uncoded 03/30/18 11:36 Home Medications: Ambulatory Orders Amlodipine Besylate 5 mg PO DAILY 01/03/18 Brimonidine Tartrate/Timolol [Combigan Eye Drops] 1 drop OD BID 01/08/18 Dorzolamide HCl [Trusopt 2%] 1 drop OD BID 01/08/18 Latanoprost 0.005% Eye Drops [Xalatan 0.005% Eye Drops -] 1 drop OU HS 01/08/18 Apixaban [Eliquis -] 5 mg PO BID 14 Days #30 tablet MDD 2 tabs 01/13/18 Metoprolol Succinate [Toprol XL -] 50 mg PO DAILY tab.sr.24h 01/13/18 Timolol 0.5% [Timoptic 0.5%] 1 drop OD BID drops 01/13/18 Anemia: Yes Asthma: No Cancer: No Cardiac Disorders: Yes CVA: No COPD: No CHF: No Dementia: No Diabetes: No GI Disorders: Yes (GIST) Disorders: No HTN: Yes Hypercholesterolemia: Yes Liver Disease: No Seizures: No Thyroid Disease: No - Surgical History Abdominal Surgery: Yes Appendectomy: No Cardiac Surgery: No Cholecystectomy: No Lung Surgery: No Neurologic Surgery: No Orthopedic Surgery: No - Suicide/Smoking/Psychosocial Hx Smoking History: Unknown if ever smoked Have you smoked in the past 12 months: No Information on smoking cessation initiated: No Hx Alcohol Use: No Drug/Substance Use Hx: No Substance Use Type: None Hx Substance Use Treatment: No Review of Systems - Review of Systems Able to Perform ROS?: No (unresponsive) *Physical Exam - Vital Signs Last Vital Signs Temp Pulse Resp BP Pulse Ox 0 L 0 L 0/0 L 08/21/18 12:59 08/21/18 12:59 08/21/18 12:59 - Physical Exam Comments: GENERAL: unconscious, intubated, Keanu device on and CPR ongoing, intubated with 7.0 ETT HEENT: pupils fixed and dilated on arrival, no e/o facial or head trauma NECK/BACK: no obvious neck hematoma or other trauma CARDIOVASCULAR: extremities lukewarm, no capillary refill, no peripheral/carotid /femoral pulses LUNGS/RESPIRATORY: nononlabored respirations, lungs CTAB GI/ABDOMEN: symmetric, atraumatic outwardly : wearing diaper EXTREMITIES: LLE trace pitting edema, right proximal anterior thigh surgical scar, IO placed in right proximal tibia SKIN: lukewarm and dry, no jaundice, no rash, no bruising, no skin breakdown, no cuts NEUROLOGICAL: Not alert or oriented, CN II-XII grossly intact, no obvious facial droop, otherwise patient is unable to participate in exam Moderate Sedation - Procedure Monitoring Vital Signs: Procedure Monitoring Vital Signs Temperature Pulse Rate 0 L 08/21/18 12:59 Respiratory Rate 0 L 08/21/18 12:59 Blood Pressure 0/0 L 08/21/18 12:59 O2 Sat by Pulse Oximetry (%) Medical Decision Making - Medical Decision Making Pt p/w cardiopulmonary arrest. Initial Vital Signs Pulse Resp BP 0 L 0 L 0/0 L 08/21/18 12:59 08/21/18 12:59 08/21/18 12:59 Exam: As noted in Physical Exam section. POC US: No cardiac activity identified DDX IBNLT: Hypovolemia, hypoxemia, H+ ions (acidosis), hyperkalemia, hypokalemia , hypoglycemia, hypothermia, tamponade, tension PTX, thrombosis ([place] or PE), trauma, toxins (e.g. toxic overdose) W/U ordered: Monitor, FSBG, EKG, attempted labs TX ordered: ACLS including transcutaneous pacer applied and shocks given, O2, AmbuBag, IO line, epi, amiodarone, sodium bicarbonate, CaCl2, magnesium sulfate , D50, TPA (given concern for known thromboembolism) Procedures done: ETT checked in good placement clinically FSBG is 90. 08/21/18 13:20 ROSC is not achieved and the Pt is pronounced at 1:20 pm. Diagnosis on expiration is cardiopulmonary arrest. Family is present in the room for last portion of the code and questions are answered. Medical examiners office is called. Patient is not a medical record librarian case. Dr. Kye Tidwell is called, preparation center coordinator for Dr. William Valladares, their practice is aware and will complete certificate. Remaining paperwork is completed. *DC/Admit/Observation/Transfer Diagnosis at time of Disposition: Cardiopulmonary arrest - Discharge Dispostion Disposition: Condition at time of disposition: Decision to Admit order: No - Referrals - Patient Instructions - Post Discharge Activity
== END 2018-08-21 17:28 | disposition expired ==
LOC: JER 12:41
PROC: 5A02210 Assistance with Cardiac Output using Balloon Pump, Continuous (ICD-10-PCS; principal; 2018-08-21)
PROC: 3E03317 Introduction of Other Thrombolytic into Peripheral Vein, Percutaneous Approach (ICD-10-PCS; 2018-08-21)
PROC: B246ZZZ Ultrasonography of Right and Left Heart (ICD-10-PCS; 2018-08-21)
DX: I46.9 Cardiac arrest, cause unspecified (principal); I48.91 Unspecified atrial fibrillation; Z79.01 Long term (current) use of anticoagulants; I42.0 Dilated cardiomyopathy; I10 Essential (primary) hypertension; E78.5 Hyperlipidemia, unspecified; M10.9 Gout, unspecified; Z86.718 Personal history of other venous thrombosis and embolism; Z87.19 Personal history of other diseases of the digestive system
CPT/HCPCS: 92950; 93799; 96374; 99282-25